=== PATIENT | female | born 1975 | race Hispanic/Latino ===

== ENCOUNTER 2018-03-11 10:53 | Outpatient (CLI) | payer BC | END 2018-03-11 10:54 | disposition home or self-care (01) | LOC: DTY/OP 10:53 | PROVIDERS: ATTEND Surgery | DX: E66.01 Morbid (severe) obesity due to excess calories (principal) | CPT/HCPCS: 97802 ==

== ENCOUNTER 2018-03-15 10:39 | Outpatient (CLI) | payer BC | END 2018-03-15 10:40 | disposition home or self-care (01) | LOC: BICMAMMO 10:39 | PROVIDERS: ATTEND Obstetrics & Gynecology | DX: Z12.31 Encounter for screening mammogram for malignant neoplasm of breast (principal); R92.1 Mammographic calcification found on diagnostic imaging of breast; Z80.3 Family history of malignant neoplasm of breast | CPT/HCPCS: 77063; 77067 ==

== ENCOUNTER 2018-04-25 06:25 | Outpatient (CLI) | payer BC ==
[2018-04-25 09:44] LABS: #Eosinphils 0.2 thou/uL (0.0-0.7); #Lymphocytes 2.5 thou/uL (1.20-3.40); #Monocytes 0.5 thou/uL (0.11-0.59); #Neutrophils 4.6 thou/uL (1.40-6.50); %Basophils 0.3 % (0.0-1.0); %Eosinophils 2.6 % (0.0-10.0); %Lymphocytes 31.9 % (21.0-51.0); %Monocytes 6.4 % (0.0-10.0); %Neutrophils 58.8 % (42.0-75.0); Hemoglobin 13.1 g/dL (12.0-16.0); Mean Corpuscular HGB CONC 32.7 g/dL (32.0-36.0); Mean Corpuscular Hemoglobin 28.8 pg (27.0-31.0); Mean Corpuscular Volume 88.1 fL (78.0-98.0); Mean Platelet Volume 7.2 fL (7.4-10.4); Platelet Count 417 thou/uL (130-400); RBC Distribution Width 11.8 % (11.5-14.5); Red Blood Cell (RBC) Count 4.55 mill/uL (4.20-5.40); White Blood Cell (WBC) Count 7.8 thou/uL (4.8-10.8)
[2018-04-25 09:57] LABS: BHCG - Serum Negative (NEGATIVE); Hemoglobin A1c 5.9 % (4.0-6.0); Pregs Control Background? CLEAR/WHITE (CLR/WHITE); Pregs Control Bar Appear? YES (CONTROL BAR)
[2018-04-25 10:05] LABS: ALT (SGPT) 28 U/L (8-55); AST (SGOT) 20 U/L (5-34); Alkaline Phosphatase 67 U/L (40-150); Anion Gap 13 mmol/L (10-20); BUN (Urea Nitrogen) 11 mg/dL (7.0-18.7); Bilirubin, Direct 0.2 mg/dL (0.1-0.3); Bilirubin, Total 0.4 mg/dL (0.2-1.2); Calc. Creatinine Clearance 0 mL/min (70-130); Calcium 9.4 mg/dL (7.8-10.44); Carbon Dioxide 25 mmol/L (22-29); Chloride 105 mmol/L (98-107); Estimated GFR-MDRD 79; Globulin 3.1 g/dL (2.4-3.5); Glucose 118 mg/dL (70-105); Potassium 4.1 mmol/L (3.5-5.1); Protein, Total 7.1 g/dL (6.0-8.3); Sodium 139 mmol/L (136-145)
--- NOTE | 2018-04-25 10:23 | RAD ---
PA AND LATERAL CHEST: History: Pre-operative evaluation. FINDINGS: The heart size is normal. The lungs are expanded without focal areas of consolidation, pneumothoraces or pleural effusions. No acute osseous abnormality is seen. IMPRESSION: No radiographic evidence of acute cardiopulmonary process. POS: [facility]
== END 2018-04-25 06:26 | disposition home or self-care (01) ==
LOC: LABBT 06:25
PROVIDERS: ATTEND Surgery
DX: Z01.818 Encounter for other preprocedural examination (principal); E66.01 Morbid (severe) obesity due to excess calories
CPT/HCPCS: 71046; 80053; 80076; 83036; 84703; 85025; 93005; 93010

== ENCOUNTER 2018-04-25 08:00 | Inpatient (IN) | payer BC ==
[2018-05-02] MEDS ORDERED: Fentanyl 100 MCG/2 ML VIAL ONE ×2 (06:29→09:37)
[2018-05-02] MEDS ORDERED: CEFAZOLIN 2 GM/50 ML BAG ONE (06:30)
[2018-05-02] MEDS ORDERED: Heparin 5,000 UNITS/ML VIAL ONE (06:30)
[2018-05-02] MEDS ORDERED: Bupivacaine HCl 0.25%/Epi 0.0005/PF 10 ML VIAL FS ONE (06:42)
[2018-05-02] MEDS ORDERED: Midazolam HCl 2 mg/2 ml Vial ONE (07:04)
[2018-05-02] MEDS ORDERED: Promethazine HCl 25 MG/ML VIAL IM PRN ×2 (08:42→08:59)
[2018-05-02] MEDS ORDERED: Hydrocodone-Acetamin 15 ML UDCUP PO PRN (08:42)
[2018-05-02] MEDS ORDERED: hydrALAZINE 20 MG/ML VIAL SLOW IVP PRN (08:42)
[2018-05-02] MEDS ORDERED: Dextrose 5% in Water 1,000 ML IV PRN (08:42)
[2018-05-02] MEDS ORDERED: Ondansetron PF 4 MG/2 ML Vial IVP PRN ×2 (08:42→09:22)
[2018-05-02] MEDS ORDERED: diphenhydrAMINE 50 MG/ML VIAL IVP PRN (08:42)
[2018-05-02] MEDS ORDERED: Dextrose 50% Abboject 50 ML SYRINGE SLOW IVP PRN (08:42)
[2018-05-02] MEDS ORDERED: CEFAZOLIN/Water 2 GM/20 ML SYRINGE SLOW IVP SCH (08:45)
[2018-05-02] MEDS ORDERED: Ketorolac Tromethamine 30 MG/ML VIAL IVP PRN (08:59)
[2018-05-02] MEDS ORDERED: Promethazine HCl 25 MG/ML VIAL SLOW IVP PRN (08:59)
[2018-05-02] MEDS ORDERED: HYDROmorphone 2 MG/ML VIAL SLOW IVP PRN (08:59)
[2018-05-02] MEDS ORDERED: Meperidine HCl/PF 25 MG/ML VIAL SLOW IVP PRN (08:59)
[2018-05-02] MEDS ORDERED: Ondansetron HCl/PF 4 MG/2 ML Vial IVP PRN (08:59)
[2018-05-02] MEDS ORDERED: Non-Formulary Item 1 EACH (Omeprazole [Omeprazole] 20 MG) PO SCH (09:00)
[2018-05-02] MEDS ORDERED: Morphine CADD 1 MG/ML CADD IVPB PRN (09:22)
[2018-05-02] MEDS ORDERED: Naloxone HCl 0.4 mg/ml Vial IV PRN (09:22)
[2018-05-02] MEDS ORDERED: Communication Order-Pharmacy FS SCH (09:30)
--- NOTE | 2018-05-02 09:35 | OP ---
DATE OF PROCEDURE: 05/02/2018 PREOPERATIVE DIAGNOSIS: Morbid obesity. PROCEDURES PERFORMED: Laparoscopic sleeve gastrectomy, hiatal hernia repair, and esophagogastroduodenoscopy. INDICATIONS: A 43-year-old female, morbidly obese, who has attempted multiple weight loss programs without success. FINDINGS: A moderate-size hiatal hernia repaired with a posterior plication. A 38-Lao bougie used. DESCRIPTION OF PROCEDURE: After informed consent was obtained, the patient was taken to the operating room and given general endotracheal anesthesia, placed in the supine position. Abdomen was prepped and draped in usual fashion. Local anesthesia infiltrated subcutaneously and deep. A 12 mm incision was performed approximately 8 inches above the xiphoid slightly to the left. Veress needle inserted. Drop test performed. Pneumoperitoneum was created to a volume of 2 L of carbon dioxide. Utilizing a bladeless 12 mm trocar and 0-degree laparoscope, direct visual entry into the abdominal cavity was performed. Pneumoperitoneum was created to a pressure of 15 mmHg and the patient placed in steep reverse Trendelenburg position. Jaylon liver retractor inserted. Left lobe of the liver retracted superiorly. Pylorus identified. A 12-mm port placed on the right beneath it and two 12s placed left subcostally. She had an obvious hiatal hernia. The omentum was taken off the greater curvature of 5 cm from the pylorus utilizing the LigaSure. Short gastrics divided with LigaSure. The left crura defined with LigaSure. Then, the gastrophrenic ligament was incised with the LigaSure and the peritoneum opened anteriorly. The posterior esophageal dissection was performed to reduce the hiatal hernia. The crura was closed posteriorly with 0 Ethibond and Sew-right and Ti-Knot device. Hemostasis assured. This was done over a 40-Lao bougie. The 38-Lao bougie then inserted and a 60 mm green load stapler used to divide the antrum to the bougie, gold load along the bougie, and a series of blues through the angle of His. The bougie removed and intraoperative endoscopy was performed. The video endoscope inserted under direct vision advanced into the sleeve. The staple line inspected. There was no bleeding. Staple line then tested by inflating the new stomach with pressurized air and water. There was no air leak. Stomach decompressed. Scope removed. The remnants of the stomach removed from the abdomen through the left lateral port site. The fascia was closed with 0 Vicryl suture and the GraNee needle. Trocars and retractors removed. The skin closed with interrupted 4-0 Rapide. Dermabond applied. The patient tolerated the procedure well, transferred to Recovery in good condition. Sponge and needle count verified correct x2. Job ID: [id number]
[2018-05-02] MEDS ORDERED: D5 1/2 NS w/20 mEq KCL 1,000 ML ONE (10:12)
[2018-05-02 11:30] VITALS: BMI 41.5
[2018-05-02] MEDS: Pantoprazole 40 MG VIAL IVP SCH (11:41)
[2018-05-02] MEDS: Montelukast Sodium 10 mg Tablet PO SCH (11:41)
[2018-05-02] MEDS: Enoxaparin Sodium 40 MG/0.4 ML SYRINGE SC SCH (11:41)
[2018-05-02] MEDS ORDERED: Ketorolac Tromethamine 30 MG/ML VIAL IVP SCH ×2 (12:00)
[2018-05-02] MEDS: D5 1/2 NS w/20 mEq KCL 1,000 ML IV SCH ×2 (12:26→21:15)
[2018-05-02] MEDS ORDERED: PROPOFOL 200 MG/20 ML VIAL ONE (14:14)
[2018-05-02] MEDS ORDERED: PHENYLEPHRINE-NS 100 MCG/ML 10 ML SYRINGE ONE (14:14)
[2018-05-02] MEDS ORDERED: Ondansetron PF 4 MG/2 ML Vial ONE (14:14)
[2018-05-02] MEDS ORDERED: Lidocaine 1% PF 5 ML VIAL ONE (14:14)
[2018-05-02] MEDS ORDERED: ePHEDrine/0.9% NaCl/PF SYRINGE 50 mg/10 ml ONE (14:14)
[2018-05-02] MEDS ORDERED: Rocuronium Bromide 10 MG/ML (10ML VIAL) ONE (14:14)
[2018-05-02] MEDS ORDERED: Dexamethasone 20 MG/5 ML VIAL ONE (14:14)
[2018-05-02] MEDS ORDERED: Ketorolac Tromethamine 30 MG/ML VIAL ONE (14:14)
[2018-05-02] MEDS ORDERED: Glycopyrrolate 0.2 MG/ML 5 ML SYRINGE ONE (14:14)
[2018-05-02] MEDS ORDERED: diphenhydrAMINE 50 MG/ML VIAL ONE (14:14)
[2018-05-02] MEDS: Ketorolac Tromethamine 30 MG/ML VIAL IVP SCH ×2 (15:09→21:15)
[2018-05-02] MEDS: CEFAZOLIN 2 GM/50 ML-DEXTROSE 2 GM in Premix Bag 1 BAG IVPB SCH (15:10)
[2018-05-03] MEDS: CEFAZOLIN 2 GM/50 ML-DEXTROSE 2 GM in Premix Bag 1 BAG IVPB SCH (01:04)
[2018-05-03] MEDS: D5 1/2 NS w/20 mEq KCL 1,000 ML IV SCH ×2 (02:01→08:14)
[2018-05-03] MEDS: Ketorolac Tromethamine 30 MG/ML VIAL IVP SCH ×2 (04:21→08:15)
[2018-05-03 07:18] LABS: #Lymphocytes 2.6 thou/uL (1.20-3.40); #Monocytes 1.2 thou/uL (0.11-0.59); #Neutrophils 15.8 thou/uL (1.40-6.50); %Basophils 0.1 % (0.0-1.0); %Eosinophils 0.2 % (0.0-10.0); %Lymphocytes 13.1 % (21.0-51.0); %Monocytes 5.9 % (0.0-10.0); %Neutrophils 80.7 % (42.0-75.0); Hemoglobin 13.2 g/dL (12.0-16.0); Mean Corpuscular HGB CONC 33.5 g/dL (32.0-36.0); Mean Corpuscular Volume 89.5 fL (78.0-98.0); Mean Platelet Volume 7.2 fL (7.4-10.4); Platelet Count 447 thou/uL (130-400); RBC Distribution Width 11.7 % (11.5-14.5); Red Blood Cell (RBC) Count 4.39 mill/uL (4.20-5.40); White Blood Cell (WBC) Count 19.5 thou/uL (4.8-10.8)
[2018-05-03 07:36] LABS: Anion Gap 13 mmol/L (10-20); BUN (Urea Nitrogen) 6 mg/dL (7.0-18.7); Calc. Creatinine Clearance 156 mL/min (70-130); Calcium 9.3 mg/dL (7.8-10.44); Carbon Dioxide 22 mmol/L (22-29); Chloride 106 mmol/L (98-107); Estimated GFR-MDRD 70; Glucose 121 mg/dL (70-105); Potassium 3.9 mmol/L (3.5-5.1); Sodium 137 mmol/L (136-145)
[2018-05-03] MEDS: Enoxaparin Sodium 40 MG/0.4 ML SYRINGE SC SCH (08:14)
[2018-05-03] MEDS: Montelukast Sodium 10 mg Tablet PO SCH (08:15)
[2018-05-03] MEDS: Pantoprazole 40 MG VIAL IVP SCH (08:15)
--- NOTE | 2018-05-03 08:58 | RAD ---
GASTROGRAFIN UPPER GI: History: Post gastric sleeve procedure. FINDINGS: Patient was given 15 ml of Gastrografin which she swallowed without difficulty. This passed through t he gastric sleeve without difficulty. No extravasation. IMPRESSION: Unremarkable exam. POS: [facility]
[2018-05-03] MEDS ORDERED: Hydrocodone-Acetamin 15 ML UDCUP PO PRN (12:35)
[2018-05-03] MEDS ORDERED: GASTROGRAFIN 30 ML BOT ONE (13:26)
[2018-05-03 14:07] VITALS: BP 112/65; TEMP 98.4
--- NOTE | 2018-05-03 20:49 | DIS ---
DATE OF ADMISSION: 05/02/2018 DATE OF DISCHARGE: 05/03/2018 DISCHARGE DIAGNOSIS: Morbid obesity. PROCEDURES DURING ADMISSION: Laparoscopic sleeve gastrectomy, hiatal hernia repair, intraoperative esophagogastroscopy, postoperative Gastrografin swallow. HOSPITAL COURSE: The patient was admitted, taken to the operating room where she underwent a laparoscopic sleeve gastrectomy. She was also found to have a fairly significant hiatal hernia, which was repaired. Postoperatively, she has done well. She is tolerating liquids well. She is discharged home on hydrocodone and Zofran. She will follow up with me in 2 weeks. Job ID: [id number]
== END 2018-05-03 14:13 | disposition home or self-care (01) | DRG 621 ==
LOC: SURG A 05-02 06:01
PROVIDERS: ADMIT Surgery; ATTEND Surgery
PROC: 0DB64Z3 Excision of Stomach, Percutaneous Endoscopic Approach, Vertical (ICD-10-PCS; principal; 2018-05-02)
PROC: 0BQT4ZZ Repair Diaphragm, Percutaneous Endoscopic Approach (ICD-10-PCS; 2018-05-02)
DX: E66.01 Morbid (severe) obesity due to excess calories (principal); K44.9 Diaphragmatic hernia without obstruction or gangrene; Z68.41 Body mass index [BMI] 40.0-44.9, adult
CPT/HCPCS: 36415; 74241; 80048; 85025; 88307; 88312; C9113; J0131; J1100; J1200; J1644; J1650; J1885; J2001; J2250; J2274; J2405; J2704; J3010

== ENCOUNTER 2018-05-09 02:26 | Inpatient (IN) | payer BC ==
[2018-05-09 03:01] LABS: #Eosinphils 0.1 thou/uL (0.0-0.7); #Lymphocytes 2.1 thou/uL (1.20-3.40); #Monocytes 1.4 thou/uL (0.11-0.59); #Neutrophils 15.7 thou/uL (1.40-6.50); %Basophils 0.2 % (0.0-1.0); %Eosinophils 0.4 % (0.0-10.0); %Lymphocytes 10.8 % (21.0-51.0); %Monocytes 7.3 % (0.0-10.0); %Neutrophils 81.3 % (42.0-75.0); Hemoglobin 12.9 g/dL (12.0-16.0); Mean Corpuscular Hemoglobin 29.8 pg (27.0-31.0); Mean Corpuscular Volume 90.2 fL (78.0-98.0); Mean Platelet Volume 6.7 fL (7.4-10.4); Platelet Count 531 thou/uL (130-400); RBC Distribution Width 11.7 % (11.5-14.5); Red Blood Cell (RBC) Count 4.33 mill/uL (4.20-5.40); White Blood Cell (WBC) Count 19.4 thou/uL (4.8-10.8)
[2018-05-09 03:21] LABS: ALT (SGPT) 12 U/L (8-55); AST (SGOT) 10 U/L (5-34); Albumin 3.6 g/dL (3.5-5.0); Alkaline Phosphatase 86 U/L (40-150); Anion Gap 17 mmol/L (10-20); BUN (Urea Nitrogen) 9 mg/dL (7.0-18.7); Bilirubin, Total 0.5 mg/dL (0.2-1.2); Calc. Creatinine Clearance 0 mL/min (70-130); Calcium 9.4 mg/dL (7.8-10.44); Carbon Dioxide 19 mmol/L (22-29); Chloride 104 mmol/L (98-107); Estimated GFR-MDRD 81; Globulin 3.9 g/dL (2.4-3.5); Glucose 115 mg/dL (70-105); Potassium 3.7 mmol/L (3.5-5.1); Protein, Total 7.5 g/dL (6.0-8.3); Sodium 136 mmol/L (136-145)
[2018-05-09] MEDS ORDERED: diphenhydrAMINE 50 MG/ML VIAL ONE ×2 (03:38→15:53)
[2018-05-09] MEDS ORDERED: Famotidine/PF 20 mg/2ml Vial ONE (03:40)
[2018-05-09] MEDS ORDERED: methylPREDNISolone Sod Succ/PF 125 MG/2 ML VIAL ONE (03:40)
[2018-05-09 03:45] LABS: Bilirubin Moderate (Negative); Blood, Urine Large (Negative); Clarity CLOUDY (Clear); Glucose, Urine (Dipstick) Negative (Negative); Leukocyte Negative (Negative); Nitrite Negative (Negative); Protein, Urine (Dipstick) 100 mg/dL (Neg-Trace); Urobilinogen 0.2 mg/dL (0.2-1.0)
[2018-05-09 03:46] LABS: Bacteria/HPF 1+ HPF (None Seen)
[2018-05-09 03:55] LABS: Pathc Cast-AUWi Flag 3.05 (0-2.49); Yeast-AUWi Flag 85.1 (0-25.0)
[2018-05-09] MEDS ORDERED: Piperacillin/Tazobactam 4.5 GM VIAL ONE (03:57)
[2018-05-09] MEDS ORDERED: Morphine 4 MG/ML VIAL ONE (03:57)
[2018-05-09 03:59] LABS: Specific Gravity, Urine 1.043 (1.002-1.036)
[2018-05-09 04:00] LABS: Hyaline Casts/LPF NONE SEEN LPF (0-3 Hyaline); Other Casts/LPF None Seen LPF (0-3 Hyaline)
[2018-05-09 04:01] LABS: Renal Epithelial None Seen HPF (0-3); Transitional Epithelial NONE SEEN HPF (0-3); Yeast-All Forms None Seen HPF (None Seen)
[2018-05-09] MEDS ORDERED: Vancomycin HCl 1.25 GM in Sodium Chloride 0.9% 250 ML 250 ML IVPB SCH (04:30)
[2018-05-09] MEDS ORDERED: Sodium Chloride 0.9% 1,000 ML IV SCH (06:02)
[2018-05-09] MEDS ORDERED: Ondansetron ODT 4 MG TAB SL PRN (06:02)
[2018-05-09] MEDS ORDERED: Ondansetron PF 4 MG/2 ML Vial IVP PRN ×2 (06:02→10:58)
[2018-05-09] MEDS ORDERED: Acetaminophen 325 MG TAB PO PRN (06:02)
[2018-05-09 06:27] VITALS: BMI 42.1
--- NOTE | 2018-05-09 08:17 | RAD ---
SINGLE VIEW CHEST: Date: 05/09/18 COMPARISON: None. HISTORY: Gastric sleeve surgery. Purulent drainage and irritation at the incision. FINDINGS: Single view of the chest shows a normal sized cardiomediastinal silhouette. There is no evidence of c onsolidation, mass, or pleural effusion. The bones are unremarkable. IMPRESSION: No evidence of acute cardiopulmonary disease. POS: [facility]
--- NOTE | 2018-05-09 08:43 | CT ---
PRELIMINARY REPORT/[facility]/EMERGENTY AFTER-HOURS PROCEDURE CT Abdomen and Pelvis With Contrast EXAM DATE/TIME: 05/09/2018 3:32 AM CLINICAL HISTORY: 43 years old, female; Pain; Abdominal pain; Generalized; Prior surgery; Surgery date: 3-7 days postop erative; Surgery type: Gastric sleeve; Patient HX: 100 ml contrast given per dr sandra. 43f presents f or the evaluation of incision drainage and fever S/P gastric sleeve. 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 Reports she woke this am at 0200 "drenched in sweat with smelly pus coming from the incis ion. " patient reports tenderness and erythema as well. Reports she felt feverish and took 2 tylenol. Denies nausea and vomiting TECHNIQUE: Axial computed tomography images of the abdomen and pelvis with intravenous contrast. Coronal reforma tted images were created and reviewed. COMPARISON: No relevant prior studies available. FINDINGS: Lower thorax: There is linear atelectasis at the lung bases. ABDOMEN: Liver: There are no focal liver lesions identified. Gallbladder and bile ducts: The gallbladder is normal. There is no evidence of biliary ductal dilatio n. Pancreas: The pancreas appears normal. No ductal dilatation. Spleen: The spleen is normal. Adrenals: There is a mass in the right adrenal gland. The density of this lesion does not allow defin itive diagnosis of a benign adrenal adenoma on this enhanced examination. The left adrenal gland is n ormal. Kidneys and ureters: The kidneys appear normal. No hydronephrosis. Stomach and bowel: Patient is post gastric bypass surgery. The duodenum is unremarkable. The colon is normal. Appendix: A normal appendix is identified. PELVIS: Bladder: The bladder is decompressed but otherwise normal. Reproductive: The uterus is normal. ABDOMEN and PELVIS: Intraperitoneal space: Normal. No free air. No significant fluid collection. Bones/joints: No acute fracture. No dislocation. Soft tissues: There is debris and fluid within the LEFT anterior abdominal surgical incision site wit h marked inflammatory stranding suggestive of phlegmonous change and forming abscess. Debris extends into the anterior abdominal wall musculature with likely sinus tract to the skin. Vasculature: Normal. No abdominal aortic aneurysm. Lymph nodes: Normal. No enlarged lymph nodes. IMPRESSION: 1. LEFT abdominal wall phlegmonous change/forming abscess with debris and fluid. Sinus tract is noted extending from the abdominal wall musculature to the skin. 2. There is a mass in the right adrenal gland. The density of this lesion does not allow definitive d iagnosis of a benign adrenal adenoma on this enhanced examination. Definitive diagnosis of this adren al lesion would require a noncontrast cross-sectional imaging study. Thank you for allowing us to participate in the care of your patient. Dictated and Authenticated by: Dilip Landry MD 05/09/2018 4:31 AM Central Time ([place] & [place]) FINAL REPORT ABDOMEN CT WITH CONTRAST PELVIC CT WITH CONTRAST: HISTORY: Incision and drainage and fever. Status post gastric sleeve. Smelly pus coming from incision. COMPARISON: None. TECHNIQUE: Abdomen and pelvic CT are performed with IV contrast. Reformatted images are submitted. FINDINGS: This report is in agreement with the preliminary report by [facility]. There are inflammatory changes in th e left upper quadrant abdominal wall compatible with phlegmonous change and forming abscess. Sinus t ract starting deep at the level of the abdominal musculature superiorly to the level of the dermis is noted. There is an incompletely evaluated mass/nodule involving the right adrenal gland. Nonemergent adrena l mass protocol CT can be performed. POS: [facility]
[2018-05-09] MEDS ORDERED: Bupivacaine HCl 0.5%/Epinephrine 1:200,000/PF 30 ml Vial ONE (10:13)
[2018-05-09] MEDS ORDERED: Fentanyl 100 MCG/2 ML VIAL ONE ×2 (10:13)
[2018-05-09] MEDS ORDERED: Midazolam HCl 2 mg/2 ml Vial ONE (10:22)
[2018-05-09] MEDS ORDERED: hydrALAZINE 20 MG/ML VIAL SLOW IVP PRN (10:58)
[2018-05-09] MEDS ORDERED: Dextrose 5% in Water 1,000 ML IV PRN (10:58)
[2018-05-09] MEDS ORDERED: Morphine 4 MG/ML VIAL SLOW IVP PRN ×2 (10:58→12:18)
[2018-05-09] MEDS ORDERED: Dextrose 50% Abboject 50 ML SYRINGE SLOW IVP PRN (10:58)
[2018-05-09] MEDS ORDERED: Promethazine HCl 25 MG/ML VIAL IM PRN (10:58)
[2018-05-09] MEDS ORDERED: Hydrocodone-Acetamin 15 ML UDCUP PO PRN (11:02)
--- NOTE | 2018-05-09 11:30 | OP ---
DATE OF PROCEDURE: 05/09/2018 PREOPERATIVE DIAGNOSIS: Abdominal wall abscess. PROCEDURE PERFORMED: Incision and drainage. INDICATIONS: A 43-year-old female, who underwent sleeve gastrectomy about a week ago, developed progressive pain, redness, and foul smelling drainage from the left-sided wound. FINDINGS: About an 8 x 6 cm abscess cavity. She was morbidly obese and had a large subcu pocket. DESCRIPTION OF PROCEDURE: After informed consent was obtained, the patient was taken to the operating room and given general endotracheal anesthesia, placed in supine position. Her abdomen was prepped and draped in usual fashion. A linear incision was performed through the old scar. Subcu divided and released foul-smelling purulent fluid. This was sent for culture and sensitivity. This fluid cavity was aspirated, then using 3 L of pulsed irrigated saline, the cavity was thoroughly irrigated and then packed open with damp to dry saline gauze. The patient tolerated the procedure well, transferred to Recovery in good condition. Sponge and needle count verified correct x2. Job ID: [id number]
[2018-05-09] MEDS ORDERED: Piperacillin/Tazobactam 4.5 GM in Sodium Chloride 0.9% 100 ML IVPB SCH (12:00)
[2018-05-09] MEDS: Piperacillin/Tazobactam 3.375 GM in Sodium Chloride 0.9% 100 ML IVPB SCH ×3 (12:33→22:59)
[2018-05-09] MEDS: Sodium Chloride 0.9% 1,000 ML IV SCH ×2 (12:34→20:16)
[2018-05-09] MEDS: Ketorolac Tromethamine 30 MG/ML VIAL IVP SCH ×3 (12:34→22:59)
[2018-05-09] MEDS: metroNIDAZOLE 500 MG in Premix Bag 1 BAG IVPB SCH ×2 (14:43→21:00)
[2018-05-09] MEDS ORDERED: PROPOFOL 200 MG/20 ML VIAL ONE (15:53)
[2018-05-09] MEDS ORDERED: Ketorolac Tromethamine 30 MG/ML VIAL ONE (15:53)
[2018-05-09] MEDS ORDERED: Metoclopramide HCl 10 MG/2 ML VIAL ONE (15:53)
[2018-05-09] MEDS ORDERED: Ondansetron PF 4 MG/2 ML Vial ONE (15:53)
[2018-05-09] MEDS ORDERED: Lidocaine 1% PF 5 ML VIAL ONE (15:53)
[2018-05-09] MEDS ORDERED: Glycopyrrolate 0.2 MG/ML 5 ML SYRINGE ONE (15:53)
[2018-05-09] MEDS ORDERED: Dexamethasone 20 MG/5 ML VIAL ONE (15:53)
[2018-05-09] MEDS ORDERED: Rocuronium Bromide 10 MG/ML (10ML VIAL) ONE (15:53)
[2018-05-09] MEDS ORDERED: Iopamidol 370 76% 50 ML VIAL FS ONE (16:56)
[2018-05-09] MEDS ORDERED: ISOVUE-370 76%-LOCM 1 ML ONE (16:56)
[2018-05-09] MEDS: Famotidine 20 MG TAB PO SCH ×2 (20:15→20:21)
[2018-05-09] MEDS: Famotidine/PF 20 mg/2ml Vial SLOW IVP SCH (20:22)
[2018-05-10] MEDS: Piperacillin/Tazobactam 3.375 GM in Sodium Chloride 0.9% 100 ML IVPB SCH ×4 (05:07→21:25)
[2018-05-10] MEDS: metroNIDAZOLE 500 MG in Premix Bag 1 BAG IVPB SCH ×3 (05:08→21:25)
[2018-05-10] MEDS: Ketorolac Tromethamine 30 MG/ML VIAL IVP SCH ×4 (05:08→23:00)
[2018-05-10 05:18] LABS: #Lymphocytes 1.5 thou/uL (1.20-3.40); #Monocytes 0.6 thou/uL (0.11-0.59); #Neutrophils 16.7 thou/uL (1.40-6.50); %Basophils 0.1 % (0.0-1.0); %Eosinophils 0.1 % (0.0-10.0); %Lymphocytes 7.9 % (21.0-51.0); %Neutrophils 88.9 % (42.0-75.0); Hemoglobin 12.5 g/dL (12.0-16.0); Mean Corpuscular HGB CONC 31.8 g/dL (32.0-36.0); Mean Corpuscular Hemoglobin 29.6 pg (27.0-31.0); Mean Corpuscular Volume 92.9 fL (78.0-98.0); Platelet Count 555 thou/uL (130-400); RBC Distribution Width 11.7 % (11.5-14.5); Red Blood Cell (RBC) Count 4.23 mill/uL (4.20-5.40); White Blood Cell (WBC) Count 18.8 thou/uL (4.8-10.8)
[2018-05-10 05:34] LABS: Anion Gap 14 mmol/L (10-20); BUN (Urea Nitrogen) 18 mg/dL (7.0-18.7); Calc. Creatinine Clearance 170 mL/min (70-130); Calcium 9.2 mg/dL (7.8-10.44); Carbon Dioxide 21 mmol/L (22-29); Chloride 107 mmol/L (98-107); Estimated GFR-MDRD 76; Glucose 128 mg/dL (70-105); Sodium 138 mmol/L (136-145)
[2018-05-10] MEDS: Famotidine/PF 20 mg/2ml Vial SLOW IVP SCH ×3 (08:19→20:05)
[2018-05-10] MEDS: Famotidine 20 MG TAB PO SCH ×2 (08:20→20:05)
[2018-05-10] MEDS: Sodium Chloride 0.9% 1,000 ML IV SCH ×2 (08:21→18:07)
--- NOTE | 2018-05-10 17:45 | PRG ---
DATE OF SERVICE: 05/10/2018 SUBJECTIVE: The patient reports that she is feeling a lot better today after surgery that her pain is better on examination. She still has some redness around the incision. OBJECTIVE: VITAL SIGNS: Her T-max 98, pulse of 47, blood pressure 137/85. The wound is still a little bit, like I said, inflamed. Wound VAC has been put on. Her white count is 18.8, down from 19.4. Her blood cultures came back positive for strep species and strep anginosus is growing out of the wound as well. ASSESSMENT: Doing well, but septic. PLAN: I would recommend at least another day or two of IV antibiotics and then we can switch her to p.o. Job ID: [id number]
[2018-05-11] MEDS: Piperacillin/Tazobactam 3.375 GM in Sodium Chloride 0.9% 100 ML IVPB SCH ×2 (03:49→10:14)
[2018-05-11] MEDS: Sodium Chloride 0.9% 1,000 ML IV SCH (03:50)
[2018-05-11] MEDS: Ketorolac Tromethamine 30 MG/ML VIAL IVP SCH (05:03)
[2018-05-11] MEDS: metroNIDAZOLE 500 MG in Premix Bag 1 BAG IVPB SCH (05:04)
[2018-05-11 05:13] LABS: #Basophils 0.1 thou/uL (0.0-0.2); #Lymphocytes 3.1 thou/uL (1.20-3.40); #Monocytes 0.8 thou/uL (0.11-0.59); #Neutrophils 8.9 thou/uL (1.40-6.50); %Basophils 0.5 % (0.0-1.0); %Eosinophils 0.2 % (0.0-10.0); %Lymphocytes 23.9 % (21.0-51.0); %Monocytes 5.9 % (0.0-10.0); %Neutrophils 69.5 % (42.0-75.0); Hemoglobin 10.1 g/dL (12.0-16.0); Mean Corpuscular HGB CONC 32.5 g/dL (32.0-36.0); Mean Corpuscular Hemoglobin 29.8 pg (27.0-31.0); Mean Corpuscular Volume 91.9 fL (78.0-98.0); Mean Platelet Volume 6.7 fL (7.4-10.4); Platelet Count 484 thou/uL (130-400); RBC Distribution Width 11.8 % (11.5-14.5); White Blood Cell (WBC) Count 12.8 thou/uL (4.8-10.8)
[2018-05-11] MEDS: Famotidine 20 MG TAB PO SCH (09:09)
[2018-05-11] MEDS: Famotidine/PF 20 mg/2ml Vial SLOW IVP SCH (09:09)
[2018-05-11 11:41] VITALS: BP 167/75; TEMP 98.1
--- NOTE | 2018-05-11 15:31 | PQF ---
CLINICAL DOCUMENTATION IMPROVEMENT CLARIFICATION FORM: ICD-10 Updated PLEASE DO AN ADDENDUM TO THE PROGRESS NOTE WITH ANY DOCUMENTATION UPDATES OR ADDITIONS AND CARRY THROUGH TO DC SUMMARY. THANK YOU. DATE: 05/11/2018 ATTN: Dr. Rome Please exercise your independent, professional judgment in responding to the clarification form. Clinical indicators are provided on the bottom of this form for your review Please check appropriate box(es): [ ] Sepsis due to abdominal wall abscess following procedure. [ ] Sepsis due to abdominal wall abscess not related to procedure. [ ] Other diagnosis [ ] Unable to determine In addition, please specify: Present on Admission (POA): [ ] Yes [ ] No [ ] Unable to determine For continuity of documentation, please document condition throughout progress notes and discharge summary. Thank You. CLINICAL INDICATORS - SIGNS / SYMPTOMS / LABS PN 2/5: Her white count is 18.8, down from 19.4. Her blood cultures came back positive for strep species and strep anginosus is growing out of the wound as well. Doing well, but septic. RISKS: Operative Note 2/4: Abdominal wall abscess. Underwent sleeve gastrectomy about a week ago. Morbidly obese. TREATMENT: Order 2/4-2/5: Zosyn 3.375 gm IV Order 2/5: Zosyn 3.375 gm IV Thank you, Ines (This form is maintained as a part of the permanent medical record) 2014 [employer]. All Rights Reserved Ines Cook RN, BSN [email or web address] Office: [phone] [facility]
--- NOTE | 2018-05-12 07:53 | DIS ---
DATE OF ADMISSION: 05/09/2018 DATE OF DISCHARGE: 05/11/2018 DISCHARGE DIAGNOSES: 1. Postop wound infection. 2. Streptococcal sepsis. PROCEDURES DURING ADMISSION: IV antibiotics, incision and drainage of left upper quadrant abdominal wound. HOSPITAL COURSE: The patient was admitted, blood cultures were drawn. She was started on IV antibiotics. She was taken to the operating room where she underwent I and D of this abscess cavity. It was irrigated thoroughly and packed open. Eventually switched to a wound VAC. Blood cultures did grow out the same organism of Streptococcus. She was treated with IV antibiotics and is doing well now. She is basically free of pain except for wound dressing changes and afebrile. Her [place] [id number] to [address]. She is discharged home in good condition on Augmentin suspension 500 mg t.i.d. for 14 days, Flagyl suspension 500 mg t.i.d. for 10 days. She will follow up with me in 2 weeks. Job ID: [id number]
== END 2018-05-11 16:32 | disposition home or self-care (01) | DRG 856 ==
LOC: ERS 02:26 → SURG B 03:20
PROVIDERS: ADMIT Surgery; ATTEND Surgery
PROC: 0J980ZZ Drainage of Abdomen Subcutaneous Tissue and Fascia, Open Approach (ICD-10-PCS; principal; 2018-05-09)
DX: T81.41XA Infection following a procedure, superficial incisional surgical site, initial encounter (principal); A40.9 Streptococcal sepsis, unspecified; Z68.41 Body mass index [BMI] 40.0-44.9, adult; E66.01 Morbid (severe) obesity due to excess calories; Y83.6 Removal of other organ (partial) (total) as the cause of abnormal reaction of the patient, or of later complication, without mention of misadventure at the time of the procedure
CPT/HCPCS: 36415; 71045; 74177; 80048; 80053; 81003; 81015; 83605; 85025; 87040; 87070; 87077; 87086; 87149; 87186; 87205; 93005; 94760; 96360; 96365; 96367; 96375; J0670; J1100; J1200; J1885; J2001; J2250; J2270; J2405; J2543; J2704; J2765; J2930; J3010; J3370; J7050; Q9966; Q9967; S0028

== ENCOUNTER 2018-05-13 08:44 | Outpatient (CLI) | payer BC ==
[2018-05-13] MEDS ORDERED: Sodium Chloride 0.9% 15 ML NEB ONE (09:00)
== END 2018-05-13 08:45 | disposition home or self-care (01) ==
LOC: WCC 08:44
PROVIDERS: ATTEND Family Medicine
DX: T81.89XD Other complications of procedures, not elsewhere classified, subsequent encounter (principal)
CPT/HCPCS: 97605; A4218

== ENCOUNTER 2018-05-16 13:57 | Outpatient (CLI) | payer BC ==
[~2018-05-16 13:57] MED LIST: Lidocaine 2% PF 100 mg/5 ml Syringe ONE; Sodium Chloride 0.9% 15 ML NEB ONE
== END 2018-05-16 13:58 | disposition home or self-care (01) ==
LOC: WCC 13:57
PROVIDERS: ATTEND Family Medicine
DX: T81.89XD Other complications of procedures, not elsewhere classified, subsequent encounter (principal)
CPT/HCPCS: 97605; A4218; J2001

== ENCOUNTER 2018-05-18 15:17 | Outpatient (CLI) | payer BC ==
[2018-05-18] MEDS ORDERED: Sodium Chloride 0.9% 15 ML NEB ONE (16:19)
[2018-05-18] MEDS ORDERED: Lidocaine 4% Topical Sol 50 ML BOT ONE (16:19)
== END 2018-05-18 15:18 | disposition home or self-care (01) ==
LOC: WCC 15:17
PROVIDERS: ATTEND Family Medicine
DX: T81.89XD Other complications of procedures, not elsewhere classified, subsequent encounter (principal)
CPT/HCPCS: 97605; A4218

== ENCOUNTER 2018-05-20 10:16 | Outpatient (CLI) | payer BC ==
[2018-05-20] MEDS ORDERED: Lidocaine 4% Topical Sol 50 ML BOT ONE (15:00)
[2018-05-20] MEDS ORDERED: Sodium Chloride 0.9% 15 ML NEB ONE (15:00)
== END 2018-05-20 10:17 | disposition home or self-care (01) ==
LOC: WCC 10:16
PROVIDERS: ATTEND Family Medicine
DX: T81.89XD Other complications of procedures, not elsewhere classified, subsequent encounter (principal)
CPT/HCPCS: 97605; A4218

== ENCOUNTER 2018-05-23 11:46 | Outpatient (CLI) | payer BC ==
--- NOTE | 2018-05-23 12:04 | HP ---
HISTORY OF PRESENT ILLNESS: Ms. Alida Johnson is a very pleasant 43-year-old, who presents to the Wound Center for evaluation of a wound of the anterior abdominal wall subsequent to incision and drainage of an abdominal wall abscess on 05/09/2018, by Dr. Rome. Negative pressure therapy was initiated subsequent to surgery and upon discharge from [facility]. The patient was referred to the Wound Center for assistance with dressing changes of the wound VAC. Previously, the patient underwent laparoscopic sleeve gastrectomy and hiatal hernia repair also by Dr. Rome. PAST MEDICAL HISTORY: Seasonal allergies. PAST SURGICAL HISTORY: 1. ORIF of right bimalleolar ankle fracture. 2. Laparoscopic sleeve gastrectomy, hiatal hernia repair. 3. Incision and drainage of abdominal wall abscess, 05/09/2018. 4. Tubal ligation. MEDICATIONS: 1. Omeprazole. 2. Multivitamin. 3. Singulair. 4. Flonase. ALLERGIES: IODINATED CONTRAST. SOCIAL HISTORY: Social history is negative for tobacco use. History is negative for tobacco use. The patient admits to the consumption of two drinks per month since age 22. FAMILY HISTORY: Family history is significant for diabetes mellitus. The patient's mother was diagnosed with diabetes mellitus. The patient states that she has multiple relatives on the maternal side of her family, who were diagnosed with diabetes mellitus. Family history is negative for coronary artery disease. PHYSICAL EXAMINATION: VITAL SIGNS: Temperature 98.1, pulse 73, blood pressure 121/75. GENERAL: A 43-year-old female sitting on chair in examination room, in no acute distress. HEENT: Normocephalic and atraumatic. NECK: No nuchal rigidity. CHEST: Clear to auscultation. CV: Regular rate and rhythm. ABDOMEN: Soft. A wound of the anterior abdominal wall is present, which measures approximately 3.4 x 0.4 cm. The depth of the wound is approximately 5 cm. Granulation tissue is present within the wound margins. Nonviable tissue present within the wound margins was debrided with an excisional full-thickness debridement with the use of scissors. No purulent drainage is associated with the wound. No erythema of the skin surrounding the wound is present. No maceration of the skin of the periwound is noted. EXTREMITIES: No clubbing or cyanosis. NEUROLOGIC: No grossly nonfocal. ASSESSMENT AND PLAN: 1. Wound of anterior abdominal wall as described above. Negative pressure therapy will be continued with dressing changes of the wound VAC here in the Wound Center. No antibiotics will be prescribed today based upon the appearance of the wound. The patient will be seen by Dr. Rome in one week. I will see Ms. Johnson again in 2 weeks. The patient understands and is in agreement with the preceding treatment plan. 2. Seasonal allergies. Job ID: [id number]
[2018-05-23] MEDS ORDERED: Sodium Chloride 0.9% 15 ML NEB ONE (17:00)
[2018-05-23] MEDS ORDERED: Lidocaine 4% Topical Sol 50 ML BOT ONE (17:00)
== END 2018-05-23 11:47 | disposition home or self-care (01) ==
LOC: WCC 11:46
PROVIDERS: ATTEND Family Medicine
DX: T81.89XD Other complications of procedures, not elsewhere classified, subsequent encounter (principal); J30.2 Other seasonal allergic rhinitis
CPT/HCPCS: A4218

== ENCOUNTER 2018-05-25 10:26 | Outpatient (CLI) | payer BC ==
[2018-05-25] MEDS ORDERED: Sodium Chloride 0.9% 15 ML NEB ONE (18:00)
[2018-05-25] MEDS ORDERED: Lidocaine 4% Topical Sol 50 ML BOT ONE (18:00)
== END 2018-05-25 10:27 | disposition home or self-care (01) ==
LOC: WCC 10:26
PROVIDERS: ATTEND Family Medicine
DX: T81.89XD Other complications of procedures, not elsewhere classified, subsequent encounter (principal)
CPT/HCPCS: 97605; A4218

== ENCOUNTER 2018-05-27 10:41 | Outpatient (CLI) | payer BC ==
[~2018-05-27 10:41] MED LIST changes: -Lidocaine 2% PF 100 mg/5 ml Syringe ONE; +Lidocaine 4% Topical Sol 50 ML BOT ONE
== END 2018-05-27 10:42 | disposition home or self-care (01) ==
LOC: WCC 10:41
PROVIDERS: ATTEND Family Medicine
DX: T81.89XD Other complications of procedures, not elsewhere classified, subsequent encounter (principal)
CPT/HCPCS: 97605; A4218

== ENCOUNTER 2018-05-30 15:42 | Outpatient (CLI) | payer BC ==
[~2018-05-30 15:42] MED LIST changes: -Lidocaine 4% Topical Sol 50 ML BOT ONE
== END 2018-05-30 15:43 | disposition home or self-care (01) ==
LOC: WCC 15:42
PROVIDERS: ATTEND Family Medicine
DX: T81.89XD Other complications of procedures, not elsewhere classified, subsequent encounter (principal)
CPT/HCPCS: 97605; A4218

== ENCOUNTER 2018-06-01 15:48 | Outpatient (CLI) | payer BC ==
[~2018-06-01 15:48] MED LIST changes: +Lidocaine 4% Topical Sol 50 ML BOT ONE
== END 2018-06-01 15:49 | disposition home or self-care (01) ==
LOC: WCC 15:48
PROVIDERS: ATTEND Family Medicine
DX: T81.89XD Other complications of procedures, not elsewhere classified, subsequent encounter (principal)
CPT/HCPCS: 97605; A4218

== ENCOUNTER 2019-05-26 09:04 | Outpatient (CLI) | payer BC ==
[2019-05-26] MEDS ORDERED: Iopamidol 370 76% 100 ML VIAL ONE (11:03)
--- NOTE | 2019-05-26 11:10 | CT ---
CT ABDOMEN AND PELVIS WITH AND WITHOUT IV CONTRAST 05/26/2019 CLINICAL INFORMATION: Adrenal mass. COMPARISON: 05/09/2018 Technique: Multiple contiguous axial CT images are obtained through the abdomen and pelvis with IV contrast. Cor onal reformatted images are provided. FINDINGS: Lower Chest: within normal limits. Vessels: Abdominal aorta is normal in caliber without evidence of an aortic dissection. Abdomen: Portal vein:Patent Gallbladder: Calculus is again present within the gallbladder lumen. Liver: within normal limits. Spleen: within normal limits. Pancreas: within normal limits. Adrenals: A 1.8 cm right adrenal mass is again noted. This mass demonstrates attenuation coefficient on precontrast images most suggestive of an adrenal adenoma. Left adrenal gland demonstrates a normal CT appearance. Kidneys: Tiny subcentimeter too small to characterize hypodense lesions are seen in each kidney. Bowel: Postsurgical changes of the stomach are again seen. Loops of small bowel are normal in caliber . Appendix: The appendix is visualized and normal in caliber. Peritoneum: Minimal amount of free fluid is seen in the pelvis. Mesentery and Retroperitoneum: No enlarged mesenteric or retroperitoneal lymph nodes. Abdominal Wall: Previously noted inflammatory changes and fluid in the subcutaneous emphysema in the left anterolateral abdominal wall has now resolved. Pelvis: Reproductive Organs: There is an oval-shaped hypodense cystic structure left adnexal region, and some images suggest that this has a tubular configuration. This could potentially represent small amount of fluid within the left fallopian tube related to hydrosalpinx versus cyst. No adjacent infla mmatory changes are present. There is mild heterogeneity seen within the fundus of the uterus which could potentially represent my ometrial cysts. This was not present on the prior exam; however, portion of the heterogeneity is centered in the region of the expected location of the endometrial canal. Small amount of fluid in th e endometrial canal is a possibility as well. Pelvis within normal limits. Bladder: Mostly decompressed but grossly normal in appearance. Bones: Mild degenerative changes are noted in the spine. IMPRESSION: 1. Right adrenal adenoma. 2. Cholelithiasis. 3. Postsurgical changes of the stomach. 4. Hypodense structure left adnexal region which could represent an oval-shaped left ovarian cyst, bu t this cystic appearing structure also has a tubular configuration, and small amount of fluid in the left fallopian tube related to hydrosalpinx is a possibility. 5. Heterogeneity in the region of the uterine fundus which could be related to several myometrial cys ts and/or possibly small amount of fluid within the endometrial canal.
== END 2019-05-26 09:05 | disposition home or self-care (01) ==
LOC: CT 09:04
PROVIDERS: ATTEND Surgery
DX: E27.8 Other specified disorders of adrenal gland (principal); D35.01 Benign neoplasm of right adrenal gland; K80.20 Calculus of gallbladder without cholecystitis without obstruction; R93.89 Abnormal findings on diagnostic imaging of other specified body structures
CPT/HCPCS: 74178; Q9967

== ENCOUNTER 2020-02-28 06:41 | Outpatient (CLI) | payer BC ==
[2020-02-28 14:02] LABS: Hemoglobin 12.3 g/dL (12.0-16.0); Mean Corpuscular HGB CONC 32.9 G/DL (32.0-36.0); Mean Corpuscular Hemoglobin 29.9 PG (27.0-33.0); Mean Platelet Volume 9.1 fl (7.4-10.4); Platelet Count 307 10x3/uL (130-400); RBC Distribution Width 11.8 % (11.5-14.5); Red Blood Cell (RBC) Count 4.11 10x6/uL (3.90-5.20); White Blood Cell (WBC) Count 9.4 10x3/uL (4.5-11.0)
[2020-02-28 22:14] LABS: SARS-CoV-2 MS2 Positive; SARS-CoV-2 N Gene Negative; SARS-CoV-2 S Gene Negative; SARS-CoV-2 by NAA Not Detected (NotDetected); SARS-CoV-2 orf1ab Negative
== END 2020-02-28 06:42 | disposition home or self-care (01) ==
LOC: LABBT 06:41
PROVIDERS: ATTEND Obstetrics & Gynecology
DX: Z01.812 Encounter for preprocedural laboratory examination (principal); D25.9 Leiomyoma of uterus, unspecified; N94.6 Dysmenorrhea, unspecified; Z20.828 Contact with and (suspected) exposure to other viral communicable diseases
CPT/HCPCS: 85027; 87635; U0003

== ENCOUNTER 2020-03-04 05:39 | Day surgery (SDC) | payer BC ==
[2020-02-27 12:30] VITALS: BMI 35.6
--- NOTE | 2020-02-28 11:11 | HP ---
DATE OF SURGERY: 03/04/2020 HISTORY OF PRESENT ILLNESS: Ms. Johnson is a 44-year-old female, G3, P2, A1 with two spontaneous vaginal deliveries, who has had a history of a previous Krystal endometrial ablation. This was done in 2016. She did well with light flow, but over the past 6 to 7 months, she has had increasingly painful periods. She has been using ibuprofen and Midol which are not helping her. It is forcing her to leave her work due to the pain. Her flow remains light. She has had a prior tubal ligation and negative Pap smear in 2017. Due to this complaint, she presented to my office on January 03 and further workup ensued. She had a transvaginal pelvic ultrasound on 01/02, showing her uterus to measure 8.5 x 5.7 x 5.8 with an endometrial thickness of 5.8. Both left and right ovaries were normal. She had evidence of a uterine fibroid that is 3 x 2.7 x 2.8 cm posteriorly. She has evidence of a small left hydrosalpinx. PAST MEDICAL HISTORY: Negative. PAST SURGICAL HISTORY: Noted for tubal ligation and an endometrial ablation. CURRENT MEDICATIONS: Diclofenac 50 mg tablet q.8 hours for menstrual pain p.r.n. SOCIAL HISTORY: Nonsmoker. No excessive alcohol use. FAMILY HISTORY: Noncontributory. PHYSICAL EXAMINATION: VITAL SIGNS: Height 5 feet 9 inches, weight 235 with BMI 34.7, blood pressure 134/86, pulse 87, respirations 18. HEENT: Within normal limits. CHEST: Clear to auscultation. HEART: Regular rate and rhythm. S1, S2 heart sounds. No murmurs, rubs, or gallops. ABDOMEN: Soft, nontender, nondistended with no palpable masses. PELVIC: Vulva and vagina had no lesions. Cervix had no lesions. Her uterus was enlarged, 10 week size with a regular contour and some mild tenderness on exam. Adnexa were nontender with no masses. ASSESSMENT: This is a 44-year-old female G3, P2, A1, with prior endometrial ablation, now with increasingly severe dysmenorrhea, suggestive of possible post-ablation syndrome, adenomyosis. Uterine myoma noted also. PLAN: Plan is to proceed with definitive surgical therapy with a robotic TLH with bilateral salpingectomy. Risks and benefits of procedure have been discussed in detail. Job ID: [id number]
[2020-03-04] MEDS ORDERED: Gabapentin 300 MG CAP ONE (06:13)
[2020-03-04] MEDS ORDERED: Famotidine/PF 20 mg/2ml Vial ONE (06:13)
[2020-03-04] MEDS ORDERED: CeleCOXIB 100 MG CAP ONE (06:13)
[2020-03-04] MEDS ORDERED: Fentanyl 100 MCG/2 ML VIAL ONE ×3 (06:28→10:14)
[2020-03-04] MEDS ORDERED: Midazolam HCl 2 mg/2 ml Vial ONE (06:28)
[2020-03-04] MEDS ORDERED: Bupivacaine PF 0.5% 30 ML VIAL ONE (07:07)
[2020-03-04] MEDS ORDERED: Lidocaine 1% w/Epinephrine 1:100K 20 ML VIAL ONE (07:07)
[2020-03-04] MEDS ORDERED: Promethazine HCl 25 MG/ML VIAL SLOW IVP PRN (08:58)
[2020-03-04] MEDS ORDERED: Promethazine HCl 25 MG/ML VIAL IM PRN ×2 (08:58→09:16)
[2020-03-04] MEDS ORDERED: Ondansetron HCl/PF 4 MG/2 ML Vial IVP PRN (08:58)
[2020-03-04] MEDS ORDERED: Ondansetron PF 4 MG/2 ML Vial IVP PRN (09:16)
[2020-03-04] MEDS ORDERED: Bisacodyl 10 MG SUPP PR PRN (09:16)
[2020-03-04] MEDS ORDERED: Simethicone Chewable 80 MG TAB PO PRN (09:16)
[2020-03-04] MEDS ORDERED: Zolpidem Tartrate 5 MG TAB PO PRN (09:16)
[2020-03-04] MEDS ORDERED: Morphine 4 MG/ML VIAL SLOW IVP PRN (09:16)
[2020-03-04] MEDS ORDERED: traMADol HCl 50 MG TAB PO PRN (09:16)
[2020-03-04] MEDS ORDERED: diphenhydrAMINE 25 MG CAP PO PRN (09:16)
--- NOTE | 2020-03-04 10:45 | OP ---
DATE OF PROCEDURE: 03/04/2020 PREOPERATIVE DIAGNOSES: 1. A 44-year-old, female, G3, P3, prior tubal ligation and endometrial ablation with onset of severe dysmenorrhea. 2. Suspected clinical adenomyosis. POSTOPERATIVE DIAGNOSES: 1. A 44-year-old female, G3, P3, prior tubal ligation and endometrial ablation with the onset of severe dysmenorrhea. 2. Suspected clinical adenomyosis. PROCEDURES PERFORMED: Robotic total laparoscopic hysterectomy with bilateral salpingectomy. BUSINESS PRACTICES OFFICER SURGEON: RHINA Byrne. ANESTHESIA: General endotracheal. ESTIMATED BLOOD LOSS: 25 mL. COMPLICATIONS: None. COUNTS: Correct x2. PATHOLOGY: Uterus, tubes, and cervix. ANTIBIOTICS: 2 g Ancef to OR along with the ERAS protocol. FINDINGS: 1. Normal bilateral ovaries noted. Tubes were prior tubal ligation with postop changes. 2. Boggy globular appearing uterus, consistent with adenomyosis. 3. Bladder was watertight to fluid distention postprocedure and also bilateral ureteral peristalsis noted postprocedure. DISPOSITION: Recovery room, stable. DESCRIPTION OF PROCEDURE: The patient previously received informed consent in regard to surgery. She was taken back to the operating room, where she received a general endotracheal anesthetic agent without complications. She was placed in the dorsal lithotomy position with the use of James stirrups and prepped and draped in usual sterile fashion. A Ricks catheter was placed at this time. A side-arm speculum was placed in the vagina. The anterior lip of the cervix was grasped with single-tooth tenaculum. The uterus sounded to 9 cm and a size 8 cm BEST uterine manipulator with a 4.0 cm cervical cup was placed in usual fashion. Tenaculum and speculum were removed. Attention was then turned to the abdomen, where perspective trocar sites were infiltrated with 0.5% Marcaine with epinephrine. A 12 mm umbilical incision was made. The Veress needle was placed into the abdominal cavity with the patient pressure less than 5. Abdomen was insufflated to the patient pressure of 15 mm with approximately 4.5 L of carbon dioxide gas. The Veress needle was then removed. A size 12 mm trocar was then placed. Laparoscope was introduced through the trocar sleeve, confirming proper entry. Additional bilateral lower quadrant 8 mm robotic trocars were placed under laparoscopic guidance along with the right upper quadrant 11 mm cardiovascular physician assistant port. The patient had been placed in Trendelenburg position and the robot was docked in usual fashion. I then broke scrub and then my assistants remained at the bedside while I performed the surgery from the operative console. The uterus was elevated from the pelvis by my assistants. The left fallopian tube was grasped by my cardiovascular physician assistant with atraumatic grasper. I used the bipolar fenestrated cautery to cauterize the mesosalpinx, and transected this with monopolar scissors. The left tube was then removed through the right upper quadrant port. I then proceeded to coagulate the left uterine ovarian ligament with bipolar fenestrated cautery, transecting this until the left round ligament was reached. It was coagulated and transected. I entered the leaf of the anterior broad ligament, dissecting the vesicouterine peritoneum in a layering technique, dropping the bladder safely past the cervicovaginal margin. The left uterine vessels were skeletonized at the internal cervical os region in a layering technique, cauterizing these, obtaining hemostasis. This was carried out in likewise fashion on the right side. Again, the right fallopian tube was removed in similar fashion. The right uterine ovarian ligament was coagulated and transected, again transecting the broad ligament, hugging close to uterus until the right round ligament was reached. It again was coagulated and transected, again entering the anterior cul-de-sac, broad ligament, dissecting the vesicouterine peritoneum in a layering technique under direct visualization. The uterine vessels again were skeletonized and coagulated in a layering technique at the internal cervical os. We then backfilled the bladder to ascertain its position prior to the anterior colpotomy. The bladder was well past the cervicovaginal margin, in the anticipated colpotomy site. The monopolar scissors were utilized to start the colpotomy from the 12 to 9 o'clock position. The uterine vessels again were coagulated with the bipolar fenestrated cautery, securing hemostasis and the colpotomy was carried around to the 6 o'clock position posteriorly. We then completed the colpotomy from 12 to 3, again coagulating the uterine vessels at the 3 o'clock position with the bipolar fenestrated cautery and completing the colpotomy from 3 to 6. The specimen was then brought down into the vaginal vault by my cardiovascular physician assistant. My operative cardiovascular physician assistant then switched my monopolar scissor with a colby needle local intermodal truck driver. The vaginal cuff was grasped with a colby needle local intermodal truck driver and coagulated with bipolar fenestrated cautery any areas of oozing for hemostasis. Stratafix suture was then brought into the field by my cardiovascular physician assistant and I closed the vaginal cuff in full-thickness closure, starting from the right angle through the midline, back to left angle and then back towards the midline. The extra suture and needle were then excised and removed out through the right upper quadrant cardiovascular physician assistant port. My cardiovascular physician assistant then irrigated all the pedicle sites with suction, irrigation. Hemostasis was confirmed in all these sites. Bilateral ureteral peristalses were visualized. The robot was then undocked. Trocar sleeves were removed after excess carbon dioxide gas was released. I rescrubbed and placed a [id number] suture of 0 Vicryl in the fascial defect in the umbilicus and the remainder of the sites were closed with 4-0 Monocryl and Dermabond. The vaginal vault was inspected and hemostasis was confirmed. There was an area of a small superficial laceration from removal of the specimen in the patient's left labia and a [id number] suture of 3-0 chromic was placed for hemostasis. The surgery was terminated. No anesthetic or surgical complications occurred. Job ID: [id number]
[2020-03-04] MEDS: Sodium Chloride 0.9% 1,000 ML IV SCH ×2 (11:45→17:49)
[2020-03-04] MEDS: Ketorolac Tromethamine 30 MG/ML VIAL IVP SCH ×2 (11:49→17:50)
[2020-03-04] MEDS: HYDROcodone/Acetaminophen 5/325 mg Tablet PO PRN ×2 (13:49→17:54)
[2020-03-04] MEDS ORDERED: Ketorolac Tromethamine 30 MG/ML VIAL ONE (14:32)
[2020-03-04] MEDS ORDERED: Dexamethasone 20 MG/5 ML VIAL ONE (14:32)
[2020-03-04] MEDS ORDERED: Lidocaine 1% PF 5 ML VIAL ONE (14:32)
[2020-03-04] MEDS ORDERED: Rocuronium Bromide 10 MG/ML (10ML VIAL) ONE (14:32)
[2020-03-04] MEDS ORDERED: PROPOFOL 200 MG/20 ML VIAL ONE (14:32)
[2020-03-04] MEDS ORDERED: Ondansetron PF 4 MG/2 ML Vial ONE (14:32)
[2020-03-04] MEDS ORDERED: Glycopyrrolate 0.2 MG/ML 5 ML SYRINGE ONE (14:32)
[2020-03-05] MEDS: Ketorolac Tromethamine 30 MG/ML VIAL IVP SCH (01:07)
[2020-03-05] MEDS: HYDROcodone/Acetaminophen 5/325 mg Tablet PO PRN ×2 (01:08→10:08)
[2020-03-05] MEDS: Sodium Chloride 0.9% 1,000 ML IV SCH ×2 (01:30→09:59)
[2020-03-05 07:29] LABS: Hemoglobin 12.1 g/dL (12.0-16.0); Mean Corpuscular HGB CONC 34.3 g/dL (32.0-36.0); Mean Corpuscular Hemoglobin 30.5 pg (27.0-31.0); Mean Platelet Volume 6.4 fL (7.4-10.4); Platelet Count 378 thou/uL (130-400); RBC Distribution Width 11.1 % (11.5-14.5); Red Blood Cell (RBC) Count 3.98 mill/uL (4.20-5.40); White Blood Cell (WBC) Count 11.2 thou/uL (4.8-10.8)
--- NOTE | 2020-03-05 07:53 | PDOC.EVN ---
Event Note - Event Note Event Note: S:Tolerating diet. Ambulating , voiding, +BM this am. Minimal pain. O:AFVSS. HCT 35% ABD: soft/non distended. Trichar sites c/d/I. A/P: Post op day 1 from robotic tlh. doing well. D/c home. F/u 2 and 6 weeks. Pathology pending.
--- NOTE | 2020-03-05 08:17 | DIS ---
DATE OF ADMISSION: 03/04/2020 DATE OF DISCHARGE: 03/05/2020 DATE OF SURGERY: 03/04. DIAGNOSES: Severe dysmenorrhea, uterine adenomyosis, post endometrial ablation syndrome. PROCEDURE PERFORMED: Robotic total laparoscopic hysterectomy with bilateral salpingectomy. SUMMARY HOSPITAL COURSE: Ms. Johnson is a 44-year-old female, prior endometrial ablation several years ago with new onset of severe dysmenorrhea with light menstrual flow. This was unresponsive to medical trial. She underwent definitive surgical therapy of robotic TLH with bilateral salpingectomy. Postoperatively, the patient has done well. Vital signs remained stable. She is ambulating, voiding, tolerating diet, and had a bowel movement on the postop day #1. Pain control was good with minimal narcotic needs. Plan was to discharge home. She has a prescription for tramadol 50 mg q.6 hours p.r.n. pain and [id number] ibuprofen as directed. Pathology is pending. We will have a followup with her in 2 and 6 weeks. Job ID: [id number]
[2020-03-05] MEDS ORDERED: PHENTERMINE HCL 37.5 MG PO SCH (09:00)
[2020-03-05 13:43] VITALS: BP 131/70; TEMP 98.8
== END 2020-03-05 13:00 | disposition home or self-care (01) ==
LOC: SDC 05:39 → 3SW 09:15 → SDC 03-05 13:00
PROVIDERS: ATTEND Obstetrics & Gynecology
PROC: 0UT94ZZ Resection of Uterus, Percutaneous Endoscopic Approach (ICD-10-PCS; principal; 2020-03-04)
PROC: 0UT74ZZ Resection of Bilateral Fallopian Tubes, Percutaneous Endoscopic Approach (ICD-10-PCS; principal; 2020-03-04)
DX: N80.0 Endometriosis of uterus (principal); N99.85 Post endometrial ablation syndrome; N72 Inflammatory disease of cervix uteri; N83.8 Other noninflammatory disorders of ovary, fallopian tube and broad ligament; D25.9 Leiomyoma of uterus, unspecified; Z79.899 Other long term (current) drug therapy; Z91.013 Allergy to seafood; Z91.041 Radiographic dye allergy status; Z98.84 Bariatric surgery status
CPT/HCPCS: 36415; 85027; 86850; 86900; 86901; 88307; J0690; J1100; J1885; J2250; J2405; J2704; J3010; S0020; S0028

== ENCOUNTER 2020-04-28 02:27 | Inpatient (IN) | payer BC ==
[2020-04-28] MEDS ORDERED: Ketorolac Tromethamine 30 MG/ML VIAL ONE (02:48)
[2020-04-28 03:11] LABS: #Lymphocytes 0.7 thou/uL (1.20-3.40); #Monocytes 0.2 thou/uL (0.11-0.59); #Neutrophils 6.1 thou/uL (1.40-6.50); %Basophils 0.1 % (0.0-1.0); %Eosinophils 0.1 % (0.0-10.0); %Lymphocytes 9.8 % (21.0-51.0); %Monocytes 2.6 % (0.0-10.0); %Neutrophils 87.5 % (42.0-75.0); Hemoglobin 13.1 g/dL (12.0-16.0); Mean Corpuscular HGB CONC 33.1 g/dL (32.0-36.0); Mean Corpuscular Hemoglobin 29.6 pg (27.0-31.0); Mean Corpuscular Volume 89.3 fL (78.0-98.0); Mean Platelet Volume 6.7 fL (7.4-10.4); Platelet Count 341 thou/uL (130-400); RBC Distribution Width 11.6 % (11.5-14.5); Red Blood Cell (RBC) Count 4.43 mill/uL (4.20-5.40)
[2020-04-28 03:37] LABS: ALT (SGPT) 25 U/L (8-55); AST (SGOT) 27 U/L (5-34); Albumin 3.6 g/dL (3.5-5.0); Alkaline Phosphatase 75 U/L (40-110); Anion Gap 13 mmol/L (10-20); BUN (Urea Nitrogen) 9 mg/dL (7.0-18.7); Bilirubin, Total 0.3 mg/dL (0.2-1.2); Calc. Creatinine Clearance 0 mL/min (70-130); Calcium 8.8 mg/dL (7.8-10.44); Carbon Dioxide 26 mmol/L (22-29); Chloride 102 mmol/L (98-107); Globulin 3.8 g/dL (2.4-3.5); Glucose 167 mg/dL (70-105); Potassium 3.7 mmol/L (3.5-5.1); Protein, Total 7.4 g/dL (6.0-8.3); Sodium 137 mmol/L (136-145)
[2020-04-28] MEDS ORDERED: methylPREDNISolone Sod Succ/PF 125 MG/2 ML VIAL ONE (03:47)
[2020-04-28] MEDS ORDERED: Famotidine/PF 20 mg/2ml Vial ONE (03:47)
[2020-04-28] MEDS ORDERED: diphenhydrAMINE 50 MG/ML VIAL ONE (03:47)
[2020-04-28] MEDS ORDERED: Acetaminophen 650 MG Suppository PR PRN (05:28)
[2020-04-28] MEDS ORDERED: Calcium Carbonate 500 MG ChewTAB PO PRN (05:28)
[2020-04-28] MEDS ORDERED: Sodium Chloride 0.9% 1,000 ML IV SCH (05:30)
--- NOTE | 2020-04-28 05:33 | PDOC.HHP ---
Hospitalist HPI - History of Present Illness dyspnea History of Present Illness: Case of an 44y/o with pmhx of obesity who was diagnosed with covid 19 4 days ago comes with worsening dyspnea. patient refers she has been at [facility], but has been getting worse every day. she stated dyspnea got very severe today for which she decided to come to hospital for evaluation. at the ed it was noted that patient was having 02 sats in the 80s at for which hospitalist was called for further evaluation and management. patient deneis any fever changes in smell or taste, does refers diarrhea that started today, headache and general malaise. Hospitalist ROS - Review of Systems All other systems reviewed; all pertinent +/- noted in HPI/Subj Hospitalist History - Past Surgical History Past Surgical History: reports: Hysterectomy, Tubal Ligation Other Surgical History: gastric sleeve - Family History Family History: reports: no pertinent history - Social History Smoking Status: Never smoker Alcohol: reports: Rare Drugs: reports: none Living Situation: Alone - Exam General Appearance: NAD, awake alert Eye: PERRL, anicteric sclera ENT: normocephalic atraumatic, no oropharyngeal lesions Neck: supple, symmetric, no JVD Heart: RRR, no murmur, no gallops Respiratory: CTAB, no wheezes, no rales Gastrointestinal: soft, non-tender, non-distended Extremities: no cyanosis, no clubbing, no edema Skin: normal turgor, no lesions, no rashes Neurological: cranial nerve grossly intact, normal sensation to touch, no weakness Musculoskeletal: normal tone, normal strength, no muscle wasting Psychiatric: normal affect, normal behavior, A&O x 3 Hospitalist Results - Labs Result Diagrams: 04/28/20 03:00 04/28/20 03:00 Lab results: WBC 7.0 thou/uL (4.8-10.8) 04/28/20 03:00 Hgb 13.1 g/dL (12.0-16.0) 04/28/20 03:00 Hct 39.6 % (36.0-47.0) 04/28/20 03:00 MCV 89.3 fL (78.0-98.0) 04/28/20 03:00 Plt Count 341 thou/uL (130-400) 04/28/20 03:00 Neutrophils % 87.5 % (42.0-75.0) H 04/28/20 03:00 Sodium 137 mmol/L (136-145) 04/28/20 03:00 Potassium 3.7 mmol/L (3.5-5.1) 04/28/20 03:00 Chloride 102 mmol/L (98-107) 04/28/20 03:00 Carbon Dioxide 26 mmol/L (22-29) 04/28/20 03:00 BUN 9 mg/dL (7.0-18.7) 04/28/20 03:00 Creatinine 0.81 mg/dL (0.6-1.1) 04/28/20 03:00 Glucose 167 mg/dL (70-105) H 04/28/20 03:00 Calcium 8.8 mg/dL (7.8-10.44) 04/28/20 03:00 Total Bilirubin 0.3 mg/dL (0.2-1.2) 04/28/20 03:00 AST 27 U/L (5-34) 04/28/20 03:00 ALT 25 U/L (8-55) 04/28/20 03:00 Alkaline Phosphatase 75 U/L (40-110) 04/28/20 03:00 Serum Total Protein 7.4 g/dL (6.0-8.3) 04/28/20 03:00 Albumin 3.6 g/dL (3.5-5.0) 04/28/20 03:00 Hospitalist H&P A/P - Problem (1) Pneumonia due to COVID-19 virus Code(s): U07.1 - COVID-19; J12.82 - PNEUMONIA DUE TO CORONAVIRUS DISEASE 2019 Status: Acute (2) Acute respiratory disease due to COVID-19 virus Code(s): U07.1 - COVID-19; J06.9 - ACUTE UPPER RESPIRATORY INFECTION, UNSPECIFIED Status: Acute (3) Morbid obesity Code(s): E66.01 - MORBID (SEVERE) OBESITY DUE TO EXCESS CALORIES Status: Acute - Plan Plan: Case of an 44y/o female with the stated pmhx who presents with resp failure s econdary to covid 19 covid 19 pneumonia with hypoxia - tested positive 4 days ago - cxr + chest ct consistent with covid 19 - 02 sats in the 80s at [facility] will start decadron ivd - vit c d + zinc - isolation precautions - 02 supplementation - f/u inflammation markers
[2020-04-28] MEDS: Cholecalciferol (Vitamin D3) 400 UNITS TAB PO SCH (09:01)
[2020-04-28] MEDS: Guaifenesin DM 100-10/5 ML UDCUP PO PRN ×2 (09:01→18:28)
[2020-04-28] MEDS: Dexamethasone 4 mg/ml Vial SLOW IVP SCH (09:01)
[2020-04-28] MEDS: Zinc Sulfate 220 MG CAP PO SCH (09:01)
[2020-04-28] MEDS: Ascorbic Acid 500 mg Chewable Tablet PO SCH (09:01)
[2020-04-28] MEDS: Enoxaparin Sodium 40 MG/0.4 ML SYRINGE SC SCH (09:01)
--- NOTE | 2020-04-28 09:31 | RAD ---
PORTABLE CHEST: 04/28/20 PROVIDED CLINICAL HISTORY: Dyspnea. COMPARISON: 05/09/2018 FINDINGS: The cardiac silhouette appears prominent, likely at least partially on the basis of the portable tech nique. Patchy bilateral air space disease is present. There is no pleural fluid or pneumothorax appar ent. IMPRESSION: Bilateral air space disease, typical but not specific for COVID pneumonia. POS: SHAHNAZ
[2020-04-28 09:44] VITALS: BMI 35.0
--- NOTE | 2020-04-28 09:51 | CT ---
PRELIMINARY REPORT/[facility]/EMERGENCY AFTER HOURS PROCEDURE: EXAM: CTA Chest with Intravenous Contrast CLINICAL HISTORY: Patient presents due to shortness of breath. Patient reports that she was diagnosed with Covid 4 days ago. She has had worsening shortness of breath since that time as well as fatigue. She complains of pain in the middle of her chest, worse with coughing and deep breathing. TECHNIQUE: Axial CTA images of the chest with intravenous contrast. Three-dimensional MIP/volume rend ered reformations were performed. CONTRAST: With; ISOVUE 370;90mL COMPARISON: None provided. FINDINGS: PULMONARY ARTERIES The pulmonary artery is enlarged, suggesting pulmonary hypertension. AORTA No thoracic aortic aneurysm or dissection. LUNGS There are multiple patchy infiltrates in both lungs, findings consistent with covid 19 pneumonia. PLEURAL SPACES No pleural effusion. No pneumothorax. HEART AND MEDIASTINUM No cardiomegaly. No significant pericardial effusion. LYMPH NODES No lymphadenopathy. BONES No focal osseous abnormality or acute fracture. CHEST WALL AND UPPER ABDOMEN There is a gallstone in the gallbladder. IMPRESSION: 1. The pulmonary artery is enlarged, suggesting pulmonary hypertension. 2. There are multiple patchy infiltrates in both lungs, findings consistent with covid 19 pneumonia. 3. There is a gallstone in the gallbladder. ELECTRONICALLY SIGNED BY: Susanne Rothman MD Apr 28, 2020 5:09:03 AM MATERIAL CHECKER This report is intended for review by the ordering physician only, in accordance of law. If you recei ve this report in error, please call [facility] at [phone]. FINAL REPORT EMERGENCY AFTER HOURS CT PULMONARY ANGIOGRAM WITH IV CONTAST AND 3D MIP RECONSTRUCTIONS: IMPRESSION: Agree with the preliminary interpretation. No evidence for central or segmental pulmonary embolus. Pu lmonary parenchymal findings typical but not specific for COVID pneumonia. POS: SHAHNAZ
[2020-04-28] MEDS ORDERED: REMDESIVIR (EUA) 200 MG in Sodium Chloride 0.9% 250 ML 210 ML IV SCH (10:00)
[2020-04-28] MEDS ORDERED: Iopamidol-370 76% 500 ML 1 ML ONE (11:56)
--- NOTE | 2020-04-28 14:16 | PDOC.EVN ---
Event Note - Event Note Event Note: spoke with patient will start pt on remdesivir. will continue steroids/dvt ppx. Patient received a Covid vaccine 4 days prior to her symptoms which started on Wednesday. Patient works at a [employer].
[2020-04-28] MEDS ORDERED: Ibuprofen 600 MG TAB PO PRN (16:12)
[2020-04-28] MEDS: Acetaminophen 325 MG TAB PO PRN (19:57)
[2020-04-29] MEDS: Guaifenesin DM 100-10/5 ML UDCUP PO PRN ×2 (02:09→20:56)
[2020-04-29 07:22] LABS: Prothrombin Time 13.2 sec (12.0-14.7)
[2020-04-29 07:29] LABS: ALT (SGPT) 24 U/L (8-55); AST (SGOT) 26 U/L (5-34); Albumin 3.3 g/dL (3.5-5.0); Alkaline Phosphatase 64 U/L (40-110); Anion Gap 13 mmol/L (10-20); BUN (Urea Nitrogen) 15 mg/dL (7.0-18.7); Bilirubin, Total 0.3 mg/dL (0.2-1.2); Calc. Creatinine Clearance 150 mL/min (70-130); Calcium 8.8 mg/dL (7.8-10.44); Carbon Dioxide 25 mmol/L (22-29); Chloride 105 mmol/L (98-107); Globulin 3.6 g/dL (2.4-3.5); Glucose 112 mg/dL (70-105); Potassium 3.7 mmol/L (3.5-5.1); Protein, Total 6.9 g/dL (6.0-8.3); Sodium 139 mmol/L (136-145)
[2020-04-29 07:31] LABS: PTT 22.5 sec (22.9-36.1)
[2020-04-29 07:45] LABS: Hemoglobin 12.6 g/dL (12.0-16.0); Mean Corpuscular HGB CONC 33.5 g/dL (32.0-36.0); Mean Corpuscular Hemoglobin 30.1 pg (27.0-31.0); Mean Corpuscular Volume 89.8 fL (78.0-98.0); Mean Platelet Volume 6.8 fL (7.4-10.4); Platelet Count 377 thou/uL (130-400); RBC Distribution Width 11.5 % (11.5-14.5); Red Blood Cell (RBC) Count 4.19 mill/uL (4.20-5.40); White Blood Cell (WBC) Count 7.5 thou/uL (4.8-10.8)
[2020-04-29] MEDS: Cholecalciferol (Vitamin D3) 400 UNITS TAB PO SCH (08:05)
[2020-04-29] MEDS: Ascorbic Acid 500 mg Chewable Tablet PO SCH (08:06)
[2020-04-29] MEDS: Dexamethasone 4 mg/ml Vial SLOW IVP SCH (08:06)
[2020-04-29] MEDS: Enoxaparin Sodium 40 MG/0.4 ML SYRINGE SC SCH (08:06)
[2020-04-29] MEDS: Zinc Sulfate 220 MG CAP PO SCH (08:06)
[2020-04-29 09:12] LABS: Band 3 % (5-11); Eosinophils 1 % (0-10); Lymphocytes 20 % (21-51); MDiff Complete? YES; Monocytes 6 % (0-10); Neutrophil 69 % (42-75); Platelet Morphology Comment Appears Adequate; RBC Morphology Normal; Reactive Lymphocytes 1 % (0-10)
[2020-04-29] MEDS: REMDESIVIR (EUA) 100 MG in Sodium Chloride 0.9% 250 ML 230 ML IV SCH (10:48)
--- NOTE | 2020-04-29 18:41 | PDOC.HOSPP ---
- Subjective Encounter Date: 04/29/20 Encounter Time: 10:30 Subjective: Patient seen in follow-up for COVID-19 pneumonia. Reports cough. - Objective Vital Signs & Weight: Vital Signs (12 hours) Temp Pulse Resp BP Pulse Ox 04/29/20 16:00 98.2 F 60 20 93 L 04/29/20 07:26 98.2 F 53 L 20 125/81 94 L Weight Weight 223 lb 15.834 oz I&O: 04/28/20 04/29/20 04/30/20 06:59 06:59 06:59 Intake Total 240 Balance 240 Result Diagrams: 04/29/20 06:27 04/29/20 06:27 Additional Labs: I reviewed patient's labs and [facility] Hospitalist ROS - Review of Systems Respiratory: reports: cough, sputum. denies: dry, shortness of breath, hemoptysis, SOB with excertion, pleuritic pain, wheezing Cardiovascular: denies: chest pain, palpitations, orthopnea, paroxysmal noc. dyspnea, edema, light headedness - Medication Medications: Active Medications Generic Name Dose Route Start Last Admin Trade Name Freq PRN Reason Stop Dose Admin Acetaminophen 650 mg 04/28/20 05:28 04/28/20 19:57 Acetaminophen 325 Mg Tab PO 650 mg Q4H PRN Administration Headache/Fever/Mild Pain (1-3) Ascorbic Acid 1,000 mg 04/28/20 09:00 04/29/20 08:06 Ascorbic Acid 500 Mg Chewable Tablet PO 1,000 mg DAILY JAYSON Administration Cholecalciferol 400 units 04/28/20 09:00 04/29/20 08:05 Cholecalciferol (Vitamin D3) 400 Units Tab PO 400 units DAILY JAYSON Administration Dexamethasone 6 mg 04/28/20 09:00 04/29/20 08:06 Dexamethasone 4 Mg/Ml Vial SLOW IVP 6 mg DAILY JAYSON Administration Enoxaparin Sodium 40 mg 04/28/20 09:00 04/29/20 08:06 Enoxaparin Sodium 40 Mg/0.4 Ml Syringe SC 40 mg 0900 JAYSON Administration Guaifenesin/Dextromethorphan 15 ml 04/28/20 05:28 04/29/20 02:09 Guaifenesin Dm 100-10/5 Ml Udcup PO 15 ml Q4H PRN Administration Cough Remdesivir 100 mg/ Sodium 250 mls @ 250 mls/hr 04/29/20 10:00 04/29/20 10:48 Chloride IV 05/02/20 10:59 250 mls Q24H JAYSON Administration Ibuprofen 600 mg 04/28/20 16:12 04/28/20 18:28 Ibuprofen 600 Mg Tab PO 600 mg Q6H PRN Administration Pain Pantoprazole Sodium 40 mg 04/28/20 09:00 04/29/20 08:06 Pantoprazole 40 Mg Tab PO 40 mg BID JAYSON Administration Sodium Chloride 10 ml 04/28/20 09:00 04/29/20 08:06 Flush - Normal Saline 10 Ml Syringe IVF 10 ml Q12HR JAYSON Administration Zinc Sulfate 220 mg 04/28/20 09:00 04/29/20 08:06 Zinc Sulfate 220 Mg Cap PO 220 mg DAILY JAYSON Administration - Exam General Appearance: awake alert General - other findings: Obese Eye: anicteric sclera ENT: normocephalic atraumatic, no oropharyngeal lesions Neck: supple Heart: RRR Respiratory: rales, rhonchi Gastrointestinal: soft, non-tender Extremities: no cyanosis Skin: no rashes Psychiatric: normal affect, normal behavior Hosp A/P - Plan Problem (1) Pneumonia due to COVID-19 virus Code(s): U07.1 - COVID-19; J12.82 - PNEUMONIA DUE TO CORONAVIRUS DISEASE 2019 Status: Acute (2) Acute respiratory disease due to COVID-19 virus Code(s): U07.1 - COVID-19; J06.9 - ACUTE UPPER RESPIRATORY INFECTION, U NSPECIFIED Status: Acute (3) Morbid obesity Code(s): E66.01 - MORBID (SEVERE) OBESITY DUE TO EXCESS CALORIES Status: Acute - Plan covid 19 pneumonia with hypoxia -Continue remdesivir till May 02, 2020. -Continue dexamethasone -Continue vit c d + zinc - isolation precautions - 02 supplementation - f/u inflammation markers
[2020-04-29] MEDS: Acetaminophen 325 MG TAB PO PRN (20:55)
[2020-04-30] MEDS: Cholecalciferol (Vitamin D3) 400 UNITS TAB PO SCH (08:49)
[2020-04-30] MEDS: Dexamethasone 4 mg/ml Vial SLOW IVP SCH (08:50)
[2020-04-30] MEDS: Zinc Sulfate 220 MG CAP PO SCH (08:50)
[2020-04-30] MEDS: Ascorbic Acid 500 mg Chewable Tablet PO SCH (08:50)
[2020-04-30] MEDS: Guaifenesin DM 100-10/5 ML UDCUP PO PRN ×2 (08:51→20:44)
[2020-04-30] MEDS: Enoxaparin Sodium 40 MG/0.4 ML SYRINGE SC SCH (08:51)
[2020-04-30] MEDS: REMDESIVIR (EUA) 100 MG in Sodium Chloride 0.9% 250 ML 230 ML IV SCH (10:37)
--- NOTE | 2020-04-30 14:54 | PDOC.HOSPP ---
- Subjective Encounter Date: 04/30/20 Encounter Time: 11:30 Subjective: Seen in follow-up for COVID-19 pneumonia. She reports coughing less. - Objective Vital Signs & Weight: Vital Signs (12 hours) Temp Pulse Resp BP Pulse Ox 04/30/20 11:33 98.1 F 60 15 124/86 97 04/30/20 08:00 92 L 04/30/20 07:34 98.2 F 57 L 16 124/72 92 L 04/30/20 05:26 95 Weight Weight 223 lb 15.834 oz I&O: 04/29/20 04/30/20 05/01/20 06:59 06:59 06:59 Intake Total 240 Balance 240 Result Diagrams: 04/29/20 06:27 04/29/20 06:27 Additional Labs: Labs and MAR reviewed by nm Hospitalist ROS - Review of Systems Respiratory: reports: cough, sputum Cardiovascular: denies: chest pain, palpitations, orthopnea, paroxysmal noc. dyspnea, edema, light headedness Skin: denies: rash, lesions, david, bruising - Medication Medications: Active Medications Generic Name Dose Route Start Last Admin Trade Name Freq PRN Reason Stop Dose Admin Acetaminophen 650 mg 04/28/20 05:28 04/29/20 20:55 Acetaminophen 325 Mg Tab PO 650 mg Q4H PRN Administration Headache/Fever/Mild Pain (1-3) Ascorbic Acid 1,000 mg 04/28/20 09:00 04/30/20 08:50 Ascorbic Acid 500 Mg Chewable Tablet PO 1,000 mg DAILY JAYSON Administration Cholecalciferol 400 units 04/28/20 09:00 04/30/20 08:49 Cholecalciferol (Vitamin D3) 400 Units Tab PO 400 units DAILY JAYSON Administration Dexamethasone 6 mg 04/28/20 09:00 04/30/20 08:50 Dexamethasone 4 Mg/Ml Vial SLOW IVP 6 mg DAILY JAYSON Administration Enoxaparin Sodium 40 mg 04/28/20 09:00 04/30/20 08:51 Enoxaparin Sodium 40 Mg/0.4 Ml Syringe SC 40 mg 0900 JAYSON Administration Guaifenesin/Dextromethorphan 15 ml 04/28/20 05:28 04/30/20 08:51 Guaifenesin Dm 100-10/5 Ml Udcup PO 15 ml Q4H PRN Administration Cough Remdesivir 100 mg/ Sodium 250 mls @ 250 mls/hr 04/29/20 10:00 04/30/20 10:37 Chloride IV 05/02/20 10:59 250 mls Q24H JAYSON Administration Ibuprofen 600 mg 04/28/20 16:12 04/28/20 18:28 Ibuprofen 600 Mg Tab PO 600 mg Q6H PRN Administration Pain Pantoprazole Sodium 40 mg 04/28/20 09:00 04/30/20 08:51 Pantoprazole 40 Mg Tab PO 40 mg BID JAYSON Administration Sodium Chloride 10 ml 04/28/20 09:00 04/30/20 08:51 Flush - Normal Saline 10 Ml Syringe IVF 10 ml Q12HR JAYSON Administration Zinc Sulfate 220 mg 04/28/20 09:00 04/30/20 08:50 Zinc Sulfate 220 Mg Cap PO 220 mg DAILY JAYSON Administration Hospitalist Exam Vitals: Vital Signs (12 hours) Temp Pulse Resp BP Pulse Ox 04/30/20 11:33 98.1 F 60 15 124/86 97 04/30/20 08:00 92 L 04/30/20 07:34 98.2 F 57 L 16 124/72 92 L 04/30/20 05:26 95 Weight Weight 223 lb 15.834 oz General Appearance: awake alert ENT: normocephalic atraumatic Neck: supple, symmetric Heart: RRR Respiratory: CTAB Gastrointestinal: soft Skin: no rashes Psychiatric: normal affect, normal behavior Hosp A/P - Plan Problem (1) Pneumonia due to COVID-19 virus Code(s): U07.1 - COVID-19; J12.82 - PNEUMONIA DUE TO CORONAVIRUS DISEASE 2019 Status: Acute (2) Acute respiratory disease due to COVID-19 virus Code(s): U07.1 - COVID-19; J06.9 - ACUTE UPPER RESPIRATORY INFECTION, UNSPECIFI ED Status: Acute (3) Morbid obesity Code(s): E66.01 - MORBID (SEVERE) OBESITY DUE TO EXCESS CALORIES Status: Acute - Plan covid 19 pneumonia with hypoxia -Patient is on remdesivir till May 02, 2020. -Patient is receiving dexamethasone -Continue vit c d + zinc - isolation precautions - 02 supplementation -Clinically improving
[2020-04-30] MEDS: Acetaminophen 325 MG TAB PO PRN (20:47)
[2020-05-01] MEDS: Cholecalciferol (Vitamin D3) 400 UNITS TAB PO SCH (08:01)
[2020-05-01] MEDS: Guaifenesin DM 100-10/5 ML UDCUP PO PRN ×2 (08:01→20:45)
[2020-05-01] MEDS: Zinc Sulfate 220 MG CAP PO SCH (08:02)
[2020-05-01] MEDS: Dexamethasone 4 mg/ml Vial SLOW IVP SCH (08:02)
[2020-05-01] MEDS: Acetaminophen 325 MG TAB PO PRN ×2 (08:02→20:44)
[2020-05-01] MEDS: Ascorbic Acid 500 mg Chewable Tablet PO SCH (08:02)
[2020-05-01] MEDS: Enoxaparin Sodium 40 MG/0.4 ML SYRINGE SC SCH (08:03)
[2020-05-01] MEDS: REMDESIVIR (EUA) 100 MG in Sodium Chloride 0.9% 250 ML 230 ML IV SCH (10:38)
--- NOTE | 2020-05-01 15:00 | PQF ---
CLINICAL DOCUMENTATION CLARIFICATION FORM: Dear : [place] Date / Time: 05/01/201429 Please exercise your independent, professional judgment in responding to the clarification form. Clinical indicators are provided on the bottom of this form for your review Please check appropriate box(es): [ ] Acute Respiratory Failure: [ ] with Hypoxia [ ] with Hypercapnia [ ] Respiratory Insufficiency [ ] Hypoxia [ ] Other diagnosis [ ] Unable to determine In addition, please specify: Present on Admission (POA): [ ] Yes [ ] No [ ] Unable to determine Physician Signature: Date/Time: For continuity of documentation, please document condition throughout progress notes and discharge summary. Thank You. To be completed by CDI/Coding staff for physician review: Present Clinical Indicators - Signs / Symptoms / Labs Results and Location in Medical Record [ ] [ x ] Decreased oxygen saturation (<90% room air or < 95% on oxygen). Cyanosis/Hypoxia Hypoxia, 88% ra, ED Doctor Note; 92% 2LPM - V/S Flow Sheet - 04/28/20 [ [ ] [ ] [ ] [ ] Bilateral opacities in CXR/CT Chest [ ] Present Risk Factors Results and Location in Medical Record [ ] [ ] [ ] [ ] [ ] [ ] [x ] Pneumonia Presents with Respiratory Failure due to Covid-19, Covid -19 Pneumonia with Hypoxia, O2 sats in the 80s at ra Attending H&P 04/28/20 [ ] [ ] Present Treatments Results and Location in Medical Record [ x] Oxygen O2 @ 2lpm nc - V/S Flow Sheets 04/28/20 - 05/01/20 [ ] [ ] [ ] [ ] [ x ] Antibiotics IV IV Remdesivir 04/29/20 - 05/02/20 [ ] [ ] [ ] [ ] CDS/Conference Center Coordinator Signature: Ranjana Bob Phone #: [phone] Date/Time: 05/01/20 1430 Acute Respiratory Failure: ABG pH < 7.35 or > 7.45; Decreased oxygen saturation (<90% room air or < 95% on oxygen); PCO2 > 50 mm Hg; PO2 < 60 mm Hg; Labored or rapid respirations ARDS: Dx Criteria [[place] ARDS]: Respiratory symptoms within one week of a known clinical insult (e.g. shock, infection, surgery, trauma) Bilateral opacities in CXR/Chest CT not due to CHF or fluid MTDD
--- NOTE | 2020-05-01 17:31 | PDOC.HOSPP ---
- Subjective Encounter Date: 05/01/20 Encounter Time: 10:00 Subjective: Patient seen in follow-up for pneumonia secondary to COVID-19 virus. Reports feeling better. - Objective Vital Signs & Weight: Vital Signs (12 hours) Temp Pulse Resp BP Pulse Ox 05/01/20 16:00 98.3 F 54 L 20 142/74 H 99 05/01/20 11:03 98.4 F 69 20 113/64 100 05/01/20 08:00 97 05/01/20 07:28 98.2 F 41 L 20 125/79 97 Weight Weight 223 lb 15.834 oz I&O: 04/30/20 05/01/20 05/02/20 06:59 06:59 06:59 Intake Total 500 Balance 500 Result Diagrams: 04/29/20 06:27 04/29/20 06:27 Additional Labs: I reviewed patient's labs and MAR Hospitalist ROS - Review of Systems Respiratory: reports: cough, sputum. denies: dry, shortness of breath, hemoptysis, SOB with excertion, pleuritic pain, wheezing Cardiovascular: denies: chest pain, palpitations, orthopnea, paroxysmal noc. dyspnea, edema, light headedness - Medication Medications: Active Medications Generic Name Dose Route Start Last Admin Trade Name Freq PRN Reason Stop Dose Admin Acetaminophen 650 mg 04/28/20 05:28 05/01/20 08:02 Acetaminophen 325 Mg Tab PO 650 mg Q4H PRN Administration Headache/Fever/Mild Pain (1-3) Ascorbic Acid 1,000 mg 04/28/20 09:00 05/01/20 08:02 Ascorbic Acid 500 Mg Chewable Tablet PO 1,000 mg DAILY JAYSON Administration Cholecalciferol 400 units 04/28/20 09:00 05/01/20 08:01 Cholecalciferol (Vitamin D3) 400 Units Tab PO 400 units DAILY JAYSON Administration Dexamethasone 6 mg 04/28/20 09:00 05/01/20 08:02 Dexamethasone 4 Mg/Ml Vial SLOW IVP 6 mg DAILY JAYSON Administration Enoxaparin Sodium 40 mg 04/28/20 09:00 05/01/20 08:03 Enoxaparin Sodium 40 Mg/0.4 Ml Syringe SC 40 mg 0900 JAYSON Administration Guaifenesin/Dextromethorphan 15 ml 04/28/20 05:28 05/01/20 08:01 Guaifenesin Dm 100-10/5 Ml Udcup PO 15 ml Q4H PRN Administration Cough Remdesivir 100 mg/ Sodium 250 mls @ 250 mls/hr 04/29/20 10:00 05/01/20 10:38 Chloride IV 05/02/20 10:59 250 mls Q24H JAYSON Administration Ibuprofen 600 mg 04/28/20 16:12 04/28/20 18:28 Ibuprofen 600 Mg Tab PO 600 mg Q6H PRN Administration Pain Pantoprazole Sodium 40 mg 04/28/20 09:00 05/01/20 08:03 Pantoprazole 40 Mg Tab PO 40 mg BID JAYSON Administration Sodium Chloride 10 ml 04/28/20 09:00 05/01/20 08:03 Flush - Normal Saline 10 Ml Syringe IVF 10 ml Q12HR JAYSON Administration Zinc Sulfate 220 mg 04/28/20 09:00 05/01/20 08:02 Zinc Sulfate 220 Mg Cap PO 220 mg DAILY JAYSON Administration Hospitalist Exam Vitals: Vital Signs (12 hours) Temp Pulse Resp BP Pulse Ox 05/01/20 16:00 98.3 F 54 L 20 142/74 H 99 05/01/20 11:03 98.4 F 69 20 113/64 100 05/01/20 08:00 97 05/01/20 07:28 98.2 F 41 L 20 125/79 97 Weight Weight 223 lb 15.834 oz General Appearance: awake alert Eye: PERRL ENT: normocephalic atraumatic Neck: supple Heart: RRR Respiratory: CTAB Gastrointestinal: soft, non-tender Skin: no rashes Musculoskeletal: no muscle wasting Psychiatric: normal affect, normal behavior Hosp A/P - Plan Problem (1) Pneumonia due to COVID-19 virus Code(s): U07.1 - COVID-19; J12.82 - PNEUMONIA DUE TO CORONAVIRUS DISEASE 2019 Status: Acute (2) Acute respiratory disease due to COVID-19 virus Code(s): U07.1 - COVID-19; J06.9 - ACUTE UPPER RESPIRATORY INFECTION, UNSPECIFIED Status: Acute (3) Morbid obesity Code(s): E66.01 - MORBID (SEVERE) OBESITY DUE TO EXCESS CALORIES Status: Acute - Plan Patient clinically improving. Continue remdesivir. Continue dexamethasone. Continue vitamin C and zinc. Last dose of remdesivir will be on May 02. Evaluate for home oxygen on the day of discharge. Likely home 24 to 48 hours.
[2020-05-02] MEDS: Ascorbic Acid 500 mg Chewable Tablet PO SCH (09:29)
[2020-05-02] MEDS: Dexamethasone 4 mg/ml Vial SLOW IVP SCH (09:29)
[2020-05-02] MEDS: Guaifenesin DM 100-10/5 ML UDCUP PO PRN (09:29)
[2020-05-02] MEDS: Zinc Sulfate 220 MG CAP PO SCH (09:29)
[2020-05-02] MEDS: Enoxaparin Sodium 40 MG/0.4 ML SYRINGE SC SCH (09:29)
[2020-05-02] MEDS: Cholecalciferol (Vitamin D3) 400 UNITS TAB PO SCH (09:29)
[2020-05-02] MEDS: REMDESIVIR (EUA) 100 MG in Sodium Chloride 0.9% 250 ML 230 ML IV SCH (10:43)
--- NOTE | 2020-05-02 10:44 | PDOC.DS.DS ---
Provider Date of Admission: 04/28/20 06:42 Date of Discharge: 05/02/20 Admitting Provider: David Simon Primary Care Physician: KELBY EPPS MD Course Hospital Course: Discharge diagnosis: 1. Acute hypoxic respiratory failure, present on admission 2. COVID-19 pneumonia Hospital course: Patient is a pleasant 45-year-old lady who was admitted to the hospital on April 28, 2020 for acute hypoxic respiratory failure secondary to COVID-19 pneumonia. She received remdesivir, dexamethasone, vitamin C and zinc. She improved clinically. She is being discharged home in a stable condition. Arrangements are being made for home oxygen. Many thanks for allowing me to participate in your patient's care. Please feel free to contact me with any questions or concerns. Discharge destination: Home Total amount of time spent coordinating this discharge: 20 minutes Resuscitation Status: 04/28/20 05:28 Resuscitation Status Routine Resuscitation Status: FULL: Full Resuscitation Lab Results: 04/29/20 06:27 04/29/20 06:27 Vitals: Vital Signs (12 hours) Temp Pulse Resp BP Pulse Ox 05/02/20 08:00 96 05/02/20 07:37 98.4 F 43 L 16 113/69 100 Weight Weight 223 lb 15.834 oz Physical Exam: The patient was seen and examined on the day of discharge. Patient denies chest pain or shortness of breath. Vital signs are stable. S1 and S2 are heard. Lungs are clear to auscultation bilaterally. Plan Prescriptions: Aspirin [Ecotrin Low Strength] 81 mg PO DAILY #7 tab Pantoprazole [Protonix] 40 mg PO DAILY #5 tab Ascorbic Acid [Vitamin C] 1,000 mg PO DAILY #5 tablet Zinc Sulfate [Zinc-220] 220 mg PO DAILY #5 capsule Home Medications: Medication Instructions Recorded Confirmed Type Omeprazole 20 mg PO QAM 04/25/18 04/28/20 History Phentermine HCl 37.5 mg PO DAILY 02/27/20 04/28/20 History Ascorbic Acid [Vitamin C] 1,000 mg PO DAILY #5 tablet 05/02/20 Rx Aspirin [Ecotrin Low Strength] 81 mg PO DAILY #7 tab 05/02/20 Rx Pantoprazole [Protonix] 40 mg PO DAILY #5 tab 05/02/20 Rx Zinc Sulfate [Zinc-220] 220 mg PO DAILY #5 capsule 05/02/20 Rx Allergies: iodine Allergy (Intermediate, Verified 02/27/20 12:31) Hives Pt. has reaction to contrast after being premedicated with predisone and benadryl. shellfish derived Allergy (Verified 02/27/20 12:31) shrimp Allergy (Verified 02/27/20 12:31) Discharge Instructions:: Get a pulse oximeter and check your oxygen saturations 3 times a day and whenever you feel short of breath. Seek medical attention for oxygen saturation less than 90%. Activity:: Activity as Tolerated Nourishment:: Regular Diet Referrals: KELBY EPPS MD [Primary Care Provider] - 3 Days Disposition: HOME Quality CORE MEASURES:: N/A
[2020-05-02 11:43] VITALS: TEMP 98.2
[2020-05-02 16:46] VITALS: BP 137/88
== END 2020-05-02 16:27 | disposition home or self-care (01) | DRG 177 ==
LOC: ERS 02:27 → T4-A 06:42
PROVIDERS: ADMIT Internal Medicine; ATTEND Internal Medicine
PROC: 8E0ZXY6 Isolation (ICD-10-PCS; principal; 2020-04-28)
PROC: XW033E5 Introduction of Remdesivir Anti-infective into Peripheral Vein, Percutaneous Approach, New Technology Group 5 (ICD-10-PCS; 2020-04-28)
DX: U07.1 COVID-19 (principal); J12.82 Pneumonia due to coronavirus disease 2019; J96.01 Acute respiratory failure with hypoxia; E66.01 Morbid (severe) obesity due to excess calories; Z91.041 Radiographic dye allergy status; Z91.013 Allergy to seafood; Z98.84 Bariatric surgery status; Z98.51 Tubal ligation status; Z90.710 Acquired absence of both cervix and uterus; Z68.35 Body mass index [BMI] 35.0-35.9, adult
CPT/HCPCS: 36415; 71045; 71275; 80053; 82728; 83615; 84145; 85007; 85025; 85027; 85610; 85730; 86140; 93005; 94760; 96374; 96375; J1100; J1200; J1650; J1885; J2930; J7050; Q9967; S0028